=== PATIENT | female | born 1975 | race Caucasian/White ===

== ENCOUNTER → 2018-02-28 16:51 | Outpatient (CLI) | payer OTHER, SELFPAY ==
[2018-02-28 11:09] VITALS: BMI 28.5
[2018-03-06 09:57] LABS: HPV APTIMA, High Risk Negative (Negative)
--- OUTSIDE RECORDS SUMMARY | 2018-04-16 22:08 | XMS RPT_ITS ---
:1975 Author Organization OHIP Care Team Providers Name Role Phone Dalila Enriquez Attending Unavailable Dalila Enriquez Attending Unavailable Dalila Enriquez Referring Unavailable VIRI PIÑA Attending Unavailable SAMUEL BERNAL Referring Unavailable Samuel Bernal Attending Unavailable PROVIDER, UNKNOWN Referring Unavailable No, PCP Primary Care Unavailable VERÓNICA CRUZ (OT) Attending Unavailable SAMUEL BERNAL Referring Unavailable PROBLEMS PROBLEMS DATE TYPE CONDITION / CODE ATTENDING STATUS SOURCE 04/03/2018 Active Unknown / NA Active [place] UNK(Unknown) Clinic Other [facility] Repository 04/03/2018 Admitting Unknown / JAYANT, Active [place] General diagnosis UNK(Unknown) [facility] (OT[facility] Repository 03/24/2018 Active Other injury of VIRI PIÑA Active [place] unspecified body [facility] Other region, initial [facility] encounter / Repository T14.8XXA(ICD-10) 02/28/2018 Unknown Z12.4 - Encounter Mina Active [place] for screening for [facility] malignant neoplasm Hospital of cervix / Repository Z12.4(ICD-10) 02/28/2018 Unknown Z01.419 - Encounter Mina, Active [place] for gynecological [facility] (general) (routine) Repository without abnormal findings / Z01.419(ICD-10) 02/28/2018 Unknown Z13.220 - Encounter Mina, Active [place] for screening for [facility] lipoid disorders / Hospital Z13.220(ICD-10) Repository 02/28/2018 Unknown Z13.1 - Encounter Mina, Active [place] for screening for [facility] diabetes mellitus / Hospital Z13.1(ICD-10) Repository 02/28/2018 Unknown Z13.21 - Encounter Mina, Active [place] for screening for [facility] nutritional Hospital disorder / Repository Z13.21(ICD-10) PROCEDURES PROCEDURES No Procedure Records FoundRESULTS RESULTS PROGRESS Observed: 04/03/2018 Status: COMPLETED Source: [place] 1:37 PM CLINIC OTHER CAMPUS REPOSITORY HNO ID: [id number] Author: Verónica (Ot) MICHAEL Cruz Service: (none) Author Type: Occupational Therapist Type: Progress Notes Filed: 04/03/2018 1:59 PM Note Text: Episode Visit Count: 1 Therapist That Will Oversee The Plan Of Care: Stacie Cruz Start of Care Date: 04/03/18 Onset Date: 03/24/18 Patient Identified by Name and Date of : Yes [facility] OCCUPATIONAL THERAPY EVALUATION PLAN OF CARE: Assessment: Maru Bray presents with the chief complaint of open displaced fracture of the middle phalanx of the left ring and middle fingers.. She presents with impairments of pain, edema. She requires brake repairer hydraulic use of custom orthosis at this time, and range of motion to be initiated once K wire fixation removed. She may benefit from skilled occupational therapy services to improve functional use of her left hand.. Prognosis: Excellent Excellent due to: current objective clinical presentation;good overall health status;acuteness of injury Goals for Episode of Care created on 04/03/18 through 07/02/18 Patient will report a good understanding of diagnosis and OT recommendations for progression of program Patient will increase AROM of left Ring and little fingers to be 230 degrees of total active motion in order to be able to perform all self care / homemaking tasks without restrictions. Patient will independently demonstrate correct application of custom orthosis and verbalize understanding of proper wear/care by end of session. 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 Patient will report a good understanding of edema control techniques Goal Sage A=achieved PA=partially achieved NA=not achieved NT=not tested Planned Interventions, Frequency, and Duration: Current Frequency: 1x every other week Duration: 12 weeks Total Number of Visits Planned: 6 Planned Treatment Interventions: Custom orthosis fabrication;Therapeutic exercise;Therapeutic activities;Manual therapy;Self-correction management;Modalities;Patient/Family/Caregiver EducationFluidotherapy PLAN FOR NEXT VISIT: Patient to contact OT for orthosis modifications as needed. Initiate AROM after pin removal Patient demonstrates good understanding of plan of care and treatment. The above goals and plan of care were discussed and agreed upon by patient/family. SUBJECTIVE: Maru Bray is a 42 year old female seen today for Post op L hand. State she was wearing gloves when injury occurred while she was using a log splitter. To ER immediately , referred to Dr. Daniels. In addition to injury to L ring and little fingers that required surgery, states she also sustained a fracture to the middle finger as well, and that Dr. Bernal told her she could get a splint for that finger as well. Functional Limitations: lifting;heavy exertion;cleaning;driving Prior Level of Function: Independent without limitations Intake Information: Prescription present Previous Treatment: Surgery? 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 No drainage observed from pin sites Edema Location: L middle, ring and little fingers Edema Description: Mild Shoulder AROM: WNL Elbow/Wrist AROM: WNL Hand AROM: Limitations as noted Limitations as noted: Testing currently not indicated (Left) Thumb AROM: WNL Strength: Not Tested Sensation: Denies tingling or numbness Dexterity/Coordination: Not Tested Education: Education Learning Preferences: Demonstration;Explanation Barriers: None Learning/educational needs: Procedure / Surgery;Plan of Care;Wound;Home exercise program Education Provided: Yes, see treatment interventions for education provided Education Provided To: Patient (mother) Education Mode/Type: Demonstration;Literature/Printed Materials;Explanation/Discussion Response to Education/Teach Back: States/Identifies TREATMENT: Evaluation Self-Chcf Management: 1: Diagnosis / Plan of Care/ Precautions 2: Pin site care 2 x day with hydrogen peroxide 3: Wound care/ incision site care/ dressing changes 4: ROM uninvolved joints 5: Edema management Skilled Intervention: Reviewed and educated patient on additions/changes for home program as noted above with an (*). Custom orthosis: L 3913 HFO custom w/o joints (oppon/ hand gillespie/ hand trigger/ other) Custom orthosis to provide immobilization, protection and support of Left middle, ring and little fingers to promote healing. Patient was instructed in care of orthosis and wearing schedule at all times. Skilled Intervention: Clinical knowledge and skills required for custom orthotic fabrication and wearing schedule Patient/caregiver was educated in correct method for donning/doffing orthosis as well as wear and care of orthosis. Billing: Jasvir: Evaluation - Low Complexity ( 18110) Self Care / Home Management (31083): 1:1 time: 10 minutes (1 unit: 8-22 mins) Orthosis: Fabrication time for custom splint: 20 minutes Custom: L3913 HFO custom w/o joints (oppon/ hand gillespie/ hand trigger/ other) Total time: 50 minutes OSCAR Story/Riana,CHT CNTHERAPY Observed: 04/03/2018 Status: COMPLETED Source: [place] 10:45 AM CLINIC OTHER [place] REPOSITORY OT/PT/Speech Visit (AKOTB) MARU BRAY ([id number]) 1975 F Date Time Provider Department 04/03/18 10:45 AM VERÓNICA CRUZ (OT) JASON Date Time Provider Department Center 04/03/2018 10:45 AM [id number], ANAS*JASON AG [facility] Reason for Visit: OT EVAL [748] Primary Visit Diagnosis:Pain in finger of left hand [M79.645] Other Visit Diagnoses:Open displaced fracture of middle phalanx of left little finger, initial encounter [S62.626V] Open displaced fracture of middle phalanx of left ring finger, initial encounter [S62.625B] Allergies As of Date: 04/03/2018 Noted Allergy Reaction ZITHROMAX (AZITHROMYCIN) 02/24/2005 Date Reviewed: 03/24/2018 Reviewed by: Heather Garcia (Rn) ESTELA Weiss - Fully Assessed Prescriptions as of 04/03/2018 Sig: CEFADROXIL 500 MG CAPSULE Take 1 capsule by mouth twice* PRILOSEC ORAL Take by mouth. TRIAMCINOLONE ACETONIDE 0.025* Apply 1 application to affect* LEVONORGESTREL 20 MCG/24 HR (* Inserted in office Progress Notes: OSCAR Story/Riana,CHT, OT 04/03/2018 1:59 PM Signed Episode Visit Count: 1 Therapist That Will Oversee The Plan Of Care: Stacie Cruz Start of Care Date: 04/03/18 Onset Date: 03/24/18 Patient Identified by Name and Date of : Yes [facility] OCCUPATIONAL THERAPY EVALUATION PLAN OF CARE: Assessment: Maru Bray presents with the chief complaint of open displaced fracture of the middle phalanx of the left ring and middle fingers.. She presents with impairments of pain, edema. She requires brake repairer hydraulic use of custom orthosis at this time, and range of motion to be initiated once K wire fixation removed. She may benefit from skilled occupational therapy services to improve functional use of her left hand.. Prognosis: Excellent Excellent due to: current objective clinical presentation;good overall health status;acuteness of injury Goals for Episode of Care created on 04/03/18 through 07/02/18 Patient will report a good understanding of diagnosis and OT recommendations for progression of program Patient will increase AROM of left Ring and little fingers to be 230 degrees of total active motion in order to be able to perform all self care / homemaking tasks without restrictions. Patient will independently demonstrate correct application of custom orthosis and verbalize understanding of proper wear/care by end of session. 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 Patient will report a good understanding of edema control techniques Goal Sage A=achieved PA=partially achieved NA=not achieved NT=not tested Planned Interventions, Frequency, and Duration: Current Frequency: 1x every other week Duration: 12 weeks Total Number of Visits Planned: 6 Planned Treatment Interventions: Custom orthosis fabrication;Therapeutic exercise;Therapeutic activities;Manual therapy;Self-correction management;Modalities;Patient/Family/Caregiver EducationFluidotherapy PLAN FOR NEXT VISIT: Patient to contact OT for orthosis modifications as needed. Initiate AROM after pin removal Patient demonstrates good understanding of plan of care and treatment. The above goals and plan of care were discussed and agreed upon by patient/family. SUBJECTIVE: Maru Bray is a 42 year old female seen today for Post op L hand. State she was wearing gloves when injury occurred while she was using a log splitter. To ER immediately , referred to Dr. Daniels. In addition to injury to L ring and little fingers that required surgery, states she also sustained a fracture to the middle finger as well, and that Dr. Bernal told her she could get a splint for that finger as well. Functional Limitations: lifting;heavy exertion;cleaning;driving Prior Level of Function: Independent without limitations Intake Information: Prescription present Previous Treatment: Surgery? 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 No drainage observed from pin sites Edema Location: L middle, ring and little fingers Edema Description: Mild Shoulder AROM: WNL Elbow/Wrist AROM: WNL Hand AROM: Limitations as noted Limitations as noted: Testing currently not indicated (Left) Thumb AROM: WNL Strength: Not Tested Sensation: Denies tingling or numbness Dexterity/Coordination: Not Tested Education: Education Learning Preferences: Demonstration;Explanation Barriers: None Learning/educational needs: Procedure / Surgery;Plan of Care;Wound;Home exercise program Education Provided: Yes, see treatment interventions for education provided Education Provided To: Patient (mother) Education Mode/Type: Demonstration;Literature/Printed Materials;Explanation/Discussion Response to Education/Teach Back: States/Identifies TREATMENT: Evaluation Self-Chcf Management: 1: Diagnosis / Plan of Care/ Precautions 2: Pin site care 2 x day with hydrogen peroxide 3: Wound care/ incision site care/ dressing changes 4: ROM uninvolved joints 5: Edema management Skilled Intervention: Reviewed and educated patient on additions/changes for home program as noted above with an (*). Custom orthosis: L 3913 HFO custom w/o joints (oppon/ hand gillespie/ hand trigger/ other) Custom orthosis to provide immobilization, protection and support of Left middle, ring and little fingers to promote healing. Patient was instructed in care of orthosis and wearing schedule at all times. Skilled Intervention: Clinical knowledge and skills required for custom orthotic fabrication and wearing schedule Patient/caregiver was educated in correct method for donning/doffing orthosis as well as wear and care of orthosis. Billing: Jasvir: Evaluation - Low Complexity ( 18740) Self Care / Home Management (95099): 1:1 time: 10 minutes (1 unit: 8-22 mins) Orthosis: Fabrication time for custom splint: 20 minutes Custom: L3913 HFO custom w/o joints (oppon/ hand gillespie/ hand trigger/ other) Total time: 50 minutes OSCAR Story/NILES Mayers Letter Text [facility] Occupational Therapy Department Hand and Upper Extremity ORTHOSIS INSTRUCTIONS Maru Bray/ [facility]: [id number] Outpatient Occupational Therapy/ Date: April 03, 2018 Therapist: Stacie Cruz This orthosis was custom made for you. Please read the following instructions to learn about the proper wear and care for your orthosis. If you have any questions, please ask your therapist. Name of Splint: custom hand orthosis: hand based ulnar gutter L3913 HFO custom w/o joints (oppon/ hand gillespie/ hand trigger/ other) When to wear your orthosis: -brake repairer hydraulic Precautions: 1) Keep your orthosis away from open flames; it will melt and can burn 2) Keep your orthosis away from hot water, the heater, or prolonged sunlight. Excessive heat will cause your orthosis to change shape 3) If your orthosis causes any of the following problems, remove it and call your therapist for an immediate adjustment: a.) sore areas, red jara that do not go away within one hour after removing the orthosis b.) blisters c.) swelling (try loosening the straps) d.) excessive stiffness, pain, and numbness How To Put On Your Orthosis: When putting on your orthosis, be sure your hand is correctly supported and the straps are secure, but not too tight. The orthosis should fit snugly, but not too tight as to cut off circulation. If your orthosis is to be worn at night to sleep, wear it earlier in the day for a few hours to determine comfort and potential problem areas. If the orthosis seems comfortable and no problems are noted, then wear the orthosis as instructed. When the Orthosis is Removed: It is common to experience a little joint stiffness and discomfort after orthosis removal. Cleaning Your Splint: 1. Clean your orthosis with soap and lukewarm water and scrub with a small brush. 2. You may use a bathroom cleanser or nail khmer remover on hard to remove stains. 3. You may rub the inside with rubbing alcohol to decrease the odor. 4. Velcro Straps and stockinet liner may be hand washed with lukewarm, soapy water and allowed to air dry. 5. White cotton socks may be used to replace stockinet liners. Cut out the toes and cut out a place for your thumb to fit through. Additional Comments / Instructions: Call your therapist at the phone number listed above if any questions develop. Letter Text Department of Occupational Therapy Hand and Upper Extremity Center [facility] [address] [place] [address] ext [phone] Maru Sebastian Bray 04/03/2018 Therapist: Stacie Cruz CARE OF EXTERNAL FIXATORS/PINS: - It is okay to shower, use running soapy water on the pin sites. - DO NOT SOAK your surgical arm - Clean pin sites two times per day using a cottontip applicator a hydrogen Peroxide . Use only one cottontip applicator per pin site. - Exercise fingers, elbow and shoulder several times a day as instructed, however avoid strengthening [i.e. squeezing balls, etc.] - Do not push, pull or carry anything heavier than a small phone book. - If you notice increased redness, tenderness or drainage around the pin sites, please call the office. THERAPIST: Stacie Cruz HCG,URINE QUAL Collected: 03/27/2018 Status: F Source: [facility] 8:20 AM SYSTEM REPOSITORY TYPE CODE TESTS RESULT OUT OF REFERENCE UNITS RANGE LAB HCGUR Negative NA Negative HCG,Urine Qual Result Comment: is the most common reason for HCG in urine, although choriocarcinoma, hydatidiform mole, and certain nontropho- blastic malignancies also result in detectable urinary HCG levels. Sensitivity = 20mIU/mL. Performed By: #### HCGUR #### [facility] [address] [place] [address] ED NOTE Observed: 03/24/2018 Status: COMPLETED Source: [place] 6:43 PM CLINIC MAIN CAMPUS REPOSITORY HNO ID: [id number] Author: Loida (Estela) ESTELA Ridley Service: Emergency Medicine Author Type: Registered Nurse Type: ED Notes Filed: 03/24/2018 6:43 PM Note Text: Discharge instructions given. All questions answered, no further questions or concerns. Pt ambulated to lobby with a steady and independent gait with spouse. HAND 3V PA/LAT/OBL Observed: 03/24/2018 Status: F Source: [facility] 4:20 PM HEALTH SYSTEM REPOSITORY Performed at [facility] APPROVED BY: Mansoor Llamas MD EXAM TITLE: HAND 3V PA/LAT/OBL left DATE: 03/24/2018 16:11 INDICATION: Left hand was caught in a wood splitter COMPARISON: None. FINDINGS: There are comminuted appearing fractures involving the distal phalanges of the third and fourth digits. Also, there are comminuted fractures involving the middle phalanges of the fourth and f ifth digits. No dislocation is seen. Soft tissue swelling is noted near the fractures. IMPRESSION: Multiple fractures as discussed. ED PROV NOTE Observed: 03/24/2018 Status: COMPLETED Source: [place] 3:56 PM [facility] [place] REPOSITORY HNO ID: [id number] Author: Viri Piña Service: Emergency Medicine Author Type: Physician Type: ED Provider Notes Filed: 03/24/2018 7:14 PM Note Text: ED Provider Note Patient Name: Maru Bray SERVICE DATE: 03/24/18 History Patient presents with: Finger Injury Maru Bray is a 42 year old female with history of no chronic medical problems who presents with left hand and Finger Injury. Patient took nothing for this prior to arrival. Patient was using a wood splitter and got her hand caught in the splitter. She is right handed. - Symptoms began 20 minutes prior to arrival. - Severity: severe - Timing: constant - Quality: sharp - Finger Injury is exacerbated by movement palpation. - Finger Injury is not exacerbated by rest. - Symptoms are associated with pain. - Symptoms are not associated with fever, nausea and vomiting. - Improved by rest and cold compresses. - Not improved by movement. PAST MEDICAL HISTORY Diagnosis Date - Abdominal pain, right upper quadrant - Abnormal glandular Papanicolaou smear of cervix Abn. Pap smear (cervix) - Allergic rhinitis, cause unspecified - Duodenitis without mention of hemorrhage - Endometriosis, site unspecified Endometriosis - PMH - PAST MEDICAL HISTORY OF esophagitis/chronic gastritis - Ulcer, stomach peptic 2011 PAST SURGICAL HISTORY Procedure Laterality Date - COLPOSCOPY (VAGINOSCOPY) Colposcopy - EGD W/O [facility] SPECIMEN W/BX 01/19/11 - LAPAROSCOPIC CHOLEYCYSTECTOMY 08-19-12 - REMOVAL ADENOIDS,PRIMARY,<12 Y/O Adenoidectomy - REMOVAL OF OVARY(S) 08/19/12 Oophorectomy/ left endometrioma - REMOVAL OF TONSILS,<12 Y/O Tonsillectomy FAMILY HISTORY Problem Relation Age of Onset - Cancer Maternal Grandmother SKIN - Diabetes Paternal Grandmother - Heart Paternal Grandfather [place] Social History Social History Main Topics - Smoking status: Former Smoker Types: Cigarettes Quit date: 10/18/2017 - Smokeless tobacco: Never Used - Alcohol use Yes Comment: Socially - Drug use: No - Sexual activity: Yes Partners: Male control/ protection: IUD Comment: has had a vasectomy ALLERGIES Allergen Reactions - Zithromax [Azithrom* Review of Systems Constitutional: Negative for activity change and appetite change. HENT: Negative for congestion and ear discharge. Eyes: Negative for pain and discharge. Respiratory: Negative for cough and chest tightness. Cardiovascular: Negative for chest pain and palpitations. Gastrointestinal: Negative for abdominal pain and constipation. Endocrine: Negative for polydipsia and polyuria. Genitourinary: Negative for dyspareunia and dysuria. Musculoskeletal: Positive for arthralgias and joint swelling. Neurological: Negative for dizziness and headaches. Psychiatric/Behavioral: Negative for agitation and behavioral problems. Physical Exam BP 132/64 Pulse 74 Temp (Src) 97.9 (Temporal Artery) Resp 16 Ht 5' 7 (1.70m) Wt 178 lb (80.7kg) SpO2 100% BMI 27.87 kg/(m2). Physical Exam Constitutional: She is oriented to person, place, and time. She appears well-developed and well-nourished. HENT: Head: Normocephalic and atraumatic. Right Ear: External ear normal. Left Ear: External ear normal. Nose: Nose normal. Mouth/Throat: Oropharynx is clear and moist. Eyes: Pupils are equal, round, and reactive to light. Conjunctivae and EOM are normal. Neck: Normal range of motion. Neck supple. Cardiovascular: Normal rate, regular rhythm, normal heart sounds and intact distal pulses. Pulmonary/Chest: Effort normal and breath sounds normal. Abdominal: Soft. Bowel sounds are normal. Musculoskeletal: Normal range of motion. Neurological: She is alert and oriented to person, place, and time. Skin: Capillary refill takes less than 2 seconds. There is erythema. Psychiatric: She has a normal mood and affect. Her behavior is normal. Diagnostic Testing ED Labs Ordered and Reviewed - No data to display SPLINT APPLICATION Date/Time: 03/24/2018 6:17 PM Performed by: VIRI PIÑA Authorized by: VIRI PIÑA Consent: Consent obtained: Verbal Consent given by: Patient Risks discussed: Discoloration, numbness, pain and swelling Alternatives discussed: No treatment, delayed treatment, alternative treatment, observation and referral Pre-procedure details: Sensation: Normal Procedure details: Laterality: Left Location: Finger Finger: L small finger, L ring finger, L long finger, L index finger and L thumb Cast type: Short arm Splint type: Volar short arm Supplies: Cotton padding and elastic bandage Post-procedure details: Pain: Improved Sensation: Normal Patient tolerance of procedure: Tolerated well, no immediate complications ED Course / Clinical Impression Clinical Impressions as of Mar 24 1813 Open fracture MDM / Disposition / Plan Patient was chopping wood and got her hand smashed. Xrays show fractures on 4th and 5th fingers. Open fractures. Spoke with Dr. Bernal plastic/hand surgeon commissions specialist per [facility]. I sent pictures of xrays and hand. I was advised to give antibiotics, splint and pain medication. He will see her on Monday at his office and surgery on Monday. The patient was DISCHARGED: Counseled patient regarding lab results AND radiology results AND suspected diagnosis AND need for follow- up. Discharged home with verbal and written instructions. They were instructed to return as needed for persistent or worsening symptoms or any new concerns. Condition at time of disposition: stable SIGNATURE: DO Viri Hsu 03/24/18 1914 ED NOTE Observed: 03/24/2018 Status: COMPLETED Source: [place] 3:55 PM [facility] O ID: [id number] Author: Heather Garcia (Rn) ESTELA Weiss Service: (none) Author Type: Registered Nurse Type: ED Notes Filed: 03/24/2018 3:55 PM Note Text: Smashed two fingers with log splitter. [employer] OFFICE VISIT Observed: 02/28/2018 Status: F Source: [place] REPORT 1:10 PM [facility] REPOSITORY [facility] [address] [place] [address] OFFICE VISIT Date of Service: 02/28/18 MR#: [id number] Acct: [id number] Name: MARU BRAY Rep #: [id number] : 1975 Provider: Dalila Enriquez MD Age/Sex: 42/F Location: [facility] Status: Signed Intake Vital Signs02/28/18 Height 5 ft 7 in 02/28/18 Weight: 182 lb 8 oz 02/28/18 Body Mass Index (BMI) 28.5 02/28/18 Blood Pressure 116/70 Intake Visit Reasons: ANNUAL Deputy General Counsel Required: No Is patient in pain?: No Allergies azithromycin Adverse Reaction (Unknown, Verified 02/28/18 11:16) rash Medications levonorgestrel 20 mcg/24 hr (5 years) intrauterine device 1 insert INTRAUTERINE ONCE 02/28/18 [History Confirmed 02/28/18] Is last menstrual period known: No Post menopausal: No Patient : No : No PFSH Surgical History History of cholecystectomy (Acute) History of tonsillectomy and adenoidectomy (Acute) Hx of removal of ovary (Acute) Social History number of children: 2 current occupational status: employed current occupation: [employer] Smoking Status: Current every day smoker alcohol intake: current alcohol intake frequency: holidays/special occasions only substance use type: does not use seatbelt use: always do you feel safe at home: Yes additional social history: [facility] [place] Pregancy History 2 Elective abortions Hx Para 2 Spontaneous abortions Past Pregnancies Del. DatName GA/WeeksOutcome [facility] LocaProviderFOB e ht en tn Unknown [id number] Unknown [place] 2 005 HPI ANNUAL: Details: MARU BRAY is a 42 year old who presents for annual exam. quit smoking and doing well, and then wanting to eat healthy. Last PAP: couple years ago History of abnormal PAP: nl Last mammogram: ordered History of abnormal mammogram: Colon cancer screening: Other preventative health care screenings: due Female Reproductive History Cycle Length: >35 Questions: Metorrhagia: No, Sexually active: Yes, Dyspareunia: No, PCB: No Menopausal Symptoms: No hot flashes, Yes night sweats, No weight change, No mood changes, No difficulty concentrating, No sleep problems, No change in libido ROS Const Constitutional: Reports as per HPI and night sweats; denies poor appetite, fatigue, increased appetite, weight gain or weight loss Cardio Card: Denies chest pain Resp Resp: Denies dyspnea or cough GI GI: Reports as per HPI; denies bloating, abdominal pain, constipation, vomiting or nausea : Reports as per HPI and other; denies blood in urine, vaginal odor, vaginal itching, vaginal dryness, vaginal discharge, urinary urgency, urinary incontinence, urinary frequency, pelvic pain, painful urination, difficulty urinating, prolapse symptoms, nipple discharge or hot flashes Skin Skin/Breast: Denies breast pain, breast skin changes, nipple discharge, breast lump or changing lesions Psych Psych: Denies difficulty concentrating or change in sex drive Exam Const General: cooperative, healthy appearing, comfortable, no acute distress, well developed, well groomed [facility] Head: normal to inspection, normocephalic Ears: hearing grossly normal bilaterally, external ears normal Nose: external nose normal Face and sinus: normal facial exam Neck Neck: normal visual inspection, full ROM, no lymphadenopathy Thyroid: thyroid normal Chest Chest palpation AND inspection: normal inspection of the chest Breast inspection: normal inspection of the breasts, normal inspection of the axillae Breast palpation: normal palpation of the breasts, normal palpation of the axillae, no axillary lymphadenopathy Resp Effort AND Inspection: normal respiratory effort GI Inspection: normal to inspection, non-distended Palpation: no guarding, soft, no hepatosplenomegaly General: bladder normal to palpation External Female Exam: normal external appearance, normal appearance of the urethra, no lesions Urethra: normal appearance of the urethra, normal palpation Speculum Exam - Vagina: normal appearance of the vagina, normal vaginal discharge Speculum Exam - Cervix: normal appearance of the cervix, no cervical discharge, no lesions, nontender Bimanual Exam- Vagina AND Uterus: No cervical tenderness, normal bimanual exam, uterine size normal, bladder normal to palpation, uterine mobility normal, uterine consistency normal, uterus non-tender, no cervical motion tenderness Bimanual Exam- Adnexa, other: normal adnexae, no adnexal masses, adnexae non-tender Skin General: no rashes or lesions noted Neuro General: alert, moves all extremities, no focal motor deficits Extrem General: no pedal edema, normal to inspection Psych Appearance: grossly normal Mental Status: mental status grossly normal Affect: normal affect Speech and Movement: speech and movement normal Attitude: cooperative Assessment AND Plan Problems 1. Encounter for gynecological examination without abnormal finding Z01.419 Plan Cervical cancer screening: pap hpv Breast cancer screening: mamm other health maintenance examination reviewed and orders placed if needed. Encouraged maintenance of a healthy weight and active lifestyle and handout given. Annual exam handout including recommendations for good health guidelines, Calcium/vitamin D recommendations, and basic screening information given. Problem list up to date, see problem list details for any additional plan information. Follow up in one year for annual health maintenance exam or sooner if needed. Orders Orders: Coding Level of Care Code Off vis,est,prev 40-64yrs Diagnoses Encounter for gynecological examination without abnormal finding Z01.419 Gynecological examination findings: abnormal findings ABSENT 02/28/18 1310 <Electronically signed by Dalila Enriquez MD> Date Dalila Enriquez MD Cosigner Signature: Date (if applicable) CC: PAP IG HPV APTIMA Collected: 02/28/2018 Status: F Source: [place] 16/18,45 11:00 AM [facility] REPOSITORY Order Comment: CYTOLOGY INFORMATION: - CLINICAL INFORMATION: ANNUAL - DATE LMP/MENOPAUSE: N/A - COLLECTION VIAL: Thin Prep Vial - PREMIUM NOTE INTEREST CALCULATOR CLERK SOURCE: CERVICAL - COLLECTION TECHNIQUE: CX BROOM ONLY Specimen Comment: [id number] Specimen Comment: Source.............Cervix Specimen Comment: No. of containers..01 ThinPrep Vial TYPE CODE TESTS RESULT OUT OF RANGE REFERENCE UNITS LAB L7400.0800 . Normal DIAGN Comment Result Comment: NEGATIVE FOR INTRAEPITHELIAL LESION AND MALIGNANCY. LAB L7400.0900 . Normal ADEQ Comment Result Comment: Satisfactory for evaluation. Endocervical and/or squamous metaplastic cells (endocervical component) are present. LAB L7400.1400 . Normal PERFORM Comment Result Comment: Nayla Coulter, Life Coach (ASCP) LAB L7400.2575 . Normal TEST METHOD Comment Result Comment: This liquid based ThinPrep(R) pap test was screened with the use of an image guided system. LAB L7400.2600 . Normal . COMM LAB L7400.2700 . Normal PAPSMR Comment Result Comment: The Pap smear is a screening test designed to aid in the detection of premalignant and malignant conditions of the uterine cervix. It is not a diagnostic procedure and should not be used as the sole means of detecting cervical cancer. Both false-positive and false-negative reports do occur. LAB L7400.2760 Negative Normal HPV APTIMA, Negative HR Result Comment: This test detects fourteen high-risk HPV types (16/18/31/33/35/39/45/ 51/52/56/58/59/66/68) without differentiation. Performed at: - [facility] [id number] Data Analytics Developer: Talisha Navarro MD, Phone: [phone] Performed at: = - [facility] [id number] Data Analytics Developer: Talisha Navarro MD, Phone: [phone] Performed By: #### L7400.0280 #### [facility] (refer to report for specific site) refer to report for address and phone number PROGRESS Observed: 12/19/2017 Status: COMPLETED Source: [place] 7:27 AM [facility] REPOSITORY O ID: [id number] Author: Sigrid (Stefania) Toño Service: (none) Author Type: Nurse Practitioner Type: Progress Notes Filed: 12/19/2017 8:06 AM Note Text: Subjective The history is provided by the patient. Maru Bray is a 42 year old female who presents with poison noris on her face, neck and forearms and fingers for the past 2 days after pulling some weeds at her grandmas house. She has used cortisone cream without relief. Review of Systems Constitutional: Negative. Negative for fever. Musculoskeletal: Negative. Skin: Positive for itching and rash. BP 122/80 Pulse (!) 55 Temp 36.4 ?C (97.5 ?F) (Tympanic) Resp 14 Wt 78.3 kg (172 lb 9.6 oz) BMI 27.44 kg/m? PAST MEDICAL HISTORY Diagnosis Date - Abdominal pain, right upper quadrant - Abnormal glandular Papanicolaou smear of cervix Abn. Pap smear (cervix) - Allergic rhinitis, cause unspecified - Duodenitis without mention of hemorrhage - Endometriosis, site unspecified Endometriosis - PMH - PAST MEDICAL HISTORY OF esophagitis/chronic gastritis - Ulcer, stomach peptic 2011 PAST SURGICAL HISTORY Procedure Laterality Date - COLPOSCOPY (VAGINOSCOPY) Colposcopy - EGD W/O BRSH SPECIMEN W/BX 01/19/11 - LAPAROSCOPIC CHOLEYCYSTECTOMY 08-19-12 - REMOVAL ADENOIDS,PRIMARY,<12 Y/O Adenoidectomy - REMOVAL OF OVARY(S) 08/19/12 Oophorectomy/ left endometrioma - REMOVAL OF TONSILS,<12 Y/O Tonsillectomy ALLERGIES Zithromax [Azithromycin] MEDICATIONS omeprazole (PRILOSEC ORAL) Take by mouth. levonorgestrel (MIRENA) 20 mcg/24 hr (5 years) IUD Inserted in office FAMILY HISTORY Problem Relation Age of Onset - Cancer Maternal Grandmother SKIN - Diabetes Paternal Grandmother - Heart Paternal Grandfather [place] Social History Substance Use Topics - Smoking status: Current Every Day Smoker Packs/day: 0.50 Years: 10.00 Types: Cigarettes - Smokeless tobacco: Never Used - Alcohol use Yes Comment: Socially Objective Physical Exam Constitutional: She is well-developed, well-nourished, and in no distress. HENT: Head: Normocephalic. Eyes: Conjunctivae are normal. Neurological: She is alert. Skin: Skin is warm and dry. Rash noted. There is erythema. Nursing note and vitals reviewed. ASSESSMENT/PLAN: 1. Dermatitis due to plants, including poison noris, sumac, and oak - ICD9: 692.6, ICD10: L25.5 - Oral Steriod tx -Prednisone taper - Topical steriod tx with Rx for steriod cream/ointment- see orders - Anti itch therapy of Oral Benydryl recommended prn - discussed skin care of rash - follow up if symptoms persist or worsen. - PREDNISONE 10 MG TABLET - TRIAMCINOLONE ACETONIDE 0.025 % TOPICAL CREAM - Follow-up with your PCP in 3-5 days if symptoms have not improved or sooner if symptoms worsen - Discussed red flags and need for immediate medical evaluation if any occur. - Discussed supportive care treatment with fluids, rest and analgesia. - Discussed expected course of illness Sigrid Lundberg APRN.CNP CNOV Observed: 12/19/2017 Status: COMPLETED Source: [place] 7:15 AM [facility] REPOSITORY Office Visit ([facility]) MARU BRAY ([id number]) 1975 F Date Time Provider Department 12/19/17 7:15 AM SIGRID LUNDBERG (STEFANIA) [facility] During your visit today, we recorded the following information about you: Temperature Pulse Respiration Blood pressure 97.5 degrees 55/minute 14/minute 122/80 Weight 78.3 kg Sigrid Lundberg APRN.CNP 12/19/2017 8:06 AM Signed Subjective The history is provided by the patient. Maru Bray is a 42 year old female who presents with poison noris on her face, neck and forearms and fingers for the past 2 days after pulling some weeds at her grandmas house. She has used cortisone cream without relief. Review of Systems Constitutional: Negative. Negative for fever. Musculoskeletal: Negative. Skin: Positive for itching and rash. BP 122/80 Pulse (!) 55 Temp 36.4 ?C (97.5 ?F) (Tympanic) Resp 14 Wt 78.3 kg (172 lb 9.6 oz) BMI 27.44 kg/m? PAST MEDICAL HISTORY Diagnosis Date - Abdominal pain, right upper quadrant - Abnormal glandular Papanicolaou smear of cervix Abn. Pap smear (cervix) - Allergic rhinitis, cause unspecified - Duodenitis without mention of hemorrhage - Endometriosis, site unspecified Endometriosis - PMH - PAST MEDICAL HISTORY OF esophagitis/chronic gastritis - Ulcer, stomach peptic 2011 PAST SURGICAL HISTORY Procedure Laterality Date - COLPOSCOPY (VAGINOSCOPY) Colposcopy - EGD W/O BRSH SPECIMEN W/BX 01/19/11 - LAPAROSCOPIC CHOLEYCYSTECTOMY 08-19-12 - REMOVAL ADENOIDS,PRIMARY,<12 Y/O Adenoidectomy - REMOVAL OF OVARY(S) 08/19/12 Oophorectomy/ left endometrioma - REMOVAL OF TONSILS,<12 Y/O Tonsillectomy ALLERGIES Zithromax [Azithromycin] MEDICATIONS omeprazole (PRILOSEC ORAL) Take by mouth. levonorgestrel (MIRENA) 20 mcg/24 hr (5 years) IUD Inserted in office FAMILY HISTORY Problem Relation Age of Onset - Cancer Maternal Grandmother SKIN - Diabetes Paternal Grandmother - Heart Paternal Grandfather [place] Social History Substance Use Topics - Smoking status: Current Every Day Smoker Packs/day: 0.50 Years: 10.00 Types: Cigarettes - Smokeless tobacco: Never Used - Alcohol use Yes Comment: Socially Objective Physical Exam Constitutional: She is well-developed, well-nourished, and in no distress. HENT: Head: Normocephalic. Eyes: Conjunctivae are normal. Neurological: She is alert. Skin: Skin is warm and dry. Rash noted. There is erythema. Nursing note and vitals reviewed. ASSESSMENT/PLAN: 1. Dermatitis due to plants, including poison noris, sumac, and oak - ICD9: 692.6, ICD10: L25.5 - Oral Steriod tx -Prednisone taper - Topical steriod tx with Rx for steriod cream/ointment- see orders - Anti itch therapy of Oral Benydryl recommended prn - discussed skin care of rash - follow up if symptoms persist or worsen. - PREDNISONE 10 MG TABLET - TRIAMCINOLONE ACETONIDE 0.025 % TOPICAL CREAM - Follow-up with your PCP in 3-5 days if symptoms have not improved or sooner if symptoms worsen - Discussed red flags and need for immediate medical evaluation if any occur. - Discussed supportive care treatment with fluids, rest and analgesia. - Discussed expected course of illness JANEY Muse APRN.CNP 12/19/2017 7:31 AM Signed [facility] PATIENT INFO POISON NORIS INTRODUCTION When the skin comes in direct contact with an irritating or allergy-causing substance, contact dermatitis can develop. Exposure to poison noris, poison oak, and poison sumac cause more cases of allergic contact dermatitis than all other plant families combined. People of all ethnicities and skin types are at risk for developing poison noris dermatitis. The severity of the reaction tends to decrease with age, especially in people who have had mild reactions in the past. People in occupations such as firefighting, forestry, and farming are at a higher risk of poison onris dermatitis because of repeated exposure to toxic plants. POISON NORIS CAUSES Poison noris, poison oak, and poison sumac plants all contain a compound called urushiol, which is a light, colorless oil that is found on the fruit, leaves, stem, root, and sap of the plant. When urushiol is exposed to air, it turns brown and the plant leaves develop small black spots. There are several ways that you can be exposed to urushiol: ? By touching the sap or rubbing against the leaves of the toxic plant ? By touching something that has urushiol on it, such as animal fur or garden tools ? By breathing in smoke when toxic plants are burned ? Ginkgo fruit and the skin of mangoes also contain urushiol and can produce symptoms similar to poison noris dermatitis. IDENTIFYING POISON NORIS Leaves of three, let them be is a phrase often used to identify plants that cause poison noris dermatitis. Generally, poison noris and poison oak have three leaves with flowering branches on a single stem. Poison sumac has five, seven, or more leaves that angle upward toward the top of the stem. Some types of poison noris produce a green or off-white fruit in aroldo, and in some cases, black dots form on the plants' leaves. It is not always possible to identify the plant by the leaves alone since the appearance can vary depending upon the season, growth cycle, region, and climate. Poison noris, oak, and sumac plants grow in many areas across the [facility] and throughout the world. [place] of the [facility], poison noris commonly grows as a climbing vine. In the [place] area and west, poison noris tends to grow low to the ground as a shrub. Poison oak most often grows west of the [facility], and poison sumac inhabits boggy areas in the southeastern part of the [place]. The plants are not usually found in areas at high elevations or in desert climates. POISON NORIS SIGNS AND SYMPTOMS After contact with urushiol, approximately 50 percent of people develop signs and symptoms of poison noris dermatitis. The symptoms and severity differ from person to person. The most common signs and symptoms of poison noris dermatitis are: ? Intense itching ? Skin swelling ? Skin redness These symptoms usually develop within four hours to four days after exposure to the urushiol. After the initial symptoms, you will develop fluid-filled blisters in a line or streak-like pattern. The symptoms are worst within 1 to 14 days after touching the plant, but can develop up to 21 days later if you have never been exposed to urushiol before. The blisters can occur at different times in different people; blisters can develop on the arms several days after blisters on the hands developed. This does not mean that the reaction is spreading from one area of the body to the other. The fluid that leaks from blisters does not cause symptoms. Poison noris dermatitis is not contagious and cannot be passed from person to person. However, urushiol can be carried under fingernails and on clothes; if another person comes in contact with the urushiol, they can develop poison noris dermatitis. POISON NORIS DIAGNOSIS Poison noris is usually diagnosed based upon how your skin looks. Further testing is not usually necessary. POISON NORIS TREATMENT Poison noris dermatitis usually resolves within one to three weeks without treatment. Treatments that may help relieve the itching, soreness, and discomfort caused by poison noris dermatitis include: Skin treatments ? For some people, adding oatmeal to a bath, applying cool wet compresses, and applying calamine lotion may help to relieve itching. Once the blisters begin weeping fluid, astringents containing aluminum acetate (Gavin's solution) and Domeboro may help to relieve the rash. Antihistamines ? Antihistamines may help to relieve itching caused by poison noris dermatitis. Some antihistamines make you sleepy while others do not. ? Antihistamines that make you sleepy (eg, diphenhydramine [Benadryl?]) may be helpful if you have trouble sleeping due to itching. ? Other formulas (eg, loratadine [Claritin?], cetirizine [Zyrtec?]) may be preferable for daytime. Steroid creams ? Steroid creams may be helpful if they are used during the first few days after symptoms develop. Low potency steroid creams, such as 1 percent hydrocortisone (available in the [place] without prescription) are not usually helpful. A stronger prescription formula may be helpful. Steroids ? If you develop severe symptoms or the rash covers a large area (especially on the face or genitals), you may need steroid pills or injections (eg, prednisone) to help relieve itching and swelling. Pills are usually given for 14 to 21 days, with the dosage slowly decreased over time. Antibiotics ? Skin infections are a potential complication of poison noris, especially if you scratch your skin. If you develop a skin infection because of poison noris dermatitis, you may need antibiotics to treat the infection. Other treatments ? An herbal therapy called jewelweed extract has been used to treat poison noris dermatitis, although it has not been proven effective. You should not use antihistamine creams or lotions, anesthetic creams containing benzocaine, or antibiotic creams containing neomycin or bacitracin to the skin. These creams or ointments could make the rash worse. POISON NORIS PREVENTION The best way to prevent poison noris dermatitis is to identify and avoid the plants that cause it. These plants can irritate the skin year round, even during the winter months, and can still cause a reaction years after the plant dies. ? Wear protective clothing, including long sleeves and pants when working in areas where toxic plants may be found. Keep in mind that the resin and oils from the toxic plants can be carried on clothing, pets, and under fingernails. ? Wear heavy-duty vinyl gloves when doing yard work or gardening. The oils from toxic plants can seep through latex or rubber gloves. ? After coming in contact with poison noris, remove any contaminated clothing and gently wash (do not scrub or rub) you skin and under the fingernails with mild soap and water as soon as possible. Washing within two hours after exposure can reduce the likelihood and severity of symptoms; washing the skin after you have symptoms will not help. ? Creams and ointments that create a barrier between the skin and the urushiol oil may be somewhat effective for people who are frequently exposed to poison noris. Bentoquatam (Noris Block?) is one type of barrier cream that may prevent poison noris dermatitis. It must be reapplied every four hours and it leaves a gricelda residue on the skin. ? Avoid burning poisonous vegetation, which can disperse the plant particles in the smoke, irritate the skin, and cause poison noris dermatitis. Referring Provider: SELF [[id number]] Allergies As of Date: 12/19/2017 Noted Allergy Reaction ZITHROMAX (AZITHROMYCIN) 02/24/2005 Date Reviewed: 12/19/2017 Reviewed by: Sigrid ([facility]) Toño - Fully Assessed Reason for Visit: poison noris on face [Other] Cmt: x 2 days Primary Visit Diagnosis:Dermatitis due to plants, including poison noris, sumac, and oak [L25.5] Order(s):predniSONE (DELTASONE) 10 mg tabletTake 4 tabs daily for 3 days, then 2 tabs daily for 3 days, then 1 tab daily for 3 days with food.Disp: 21 tabletRfl: 0 triamcinolone (KENALOG) 0.025 % creamApply 1 application to affected area twice daily.Disp: 30 gRfl: 0 Prescriptions as of 12/19/2017 Sig: PRILOSEC ORAL Take by mouth. LEVONORGESTREL 20 MCG/24 HR (* Inserted in office PREDNISONE 10 MG TABLET Take 4 tabs daily for 3 days,* TRIAMCINOLONE ACETONIDE 0.025* Apply 1 application to affect* Problem List As Of Date 12/19/2017 Noted Resolved Cholecystitis [K81.9] INVALID FOR* Duodenitis without mention of hemorrhage [K29.8*INVALID FOR* Abdominal pain, right upper quadrant [R10.11] INVALID FOR* Abscess, groin [L02.214] INVALID FOR* Abnormal uterine bleeding [N93.9] INVALID FOR* Heavy menstrual bleeding [N92.0] INVALID FOR* Dysmenorrhea [N94.6] INVALID FOR* Endometriosis [N80.9] INVALID FOR* Other instructions from your clinician: [facility] PATIENT INFO POISON NORIS INTRODUCTION When the skin comes in direct contact with an irritating or allergy-causing substance, contact dermatitis can develop. Exposure to poison noris, poison oak, and poison sumac cause more cases of allergic contact dermatitis than all other plant families combined. People of all ethnicities and skin types are at risk for developing poison noris dermatitis. The severity of the reaction tends to decrease with age, especially in people who have had mild reactions in the past. People in occupations such as firefighting, forestry, and farming are at a higher risk of poison noris dermatitis because of repeated exposure to toxic plants. POISON NORIS CAUSES Poison noris, poison oak, and poison sumac plants all contain a compound called urushiol, which is a light, colorless oil that is found on the fruit, leaves, stem, root, and sap of the plant. When urushiol is exposed to air, it turns brown and the plant leaves develop small black spots. There are several ways that you can be exposed to urushiol: ? By touching the sap or rubbing against the leaves of the toxic plant ? By touching something that has urushiol on it, such as animal fur or garden tools ? By breathing in smoke when toxic plants are burned ? Ginkgo fruit and the skin of mangoes also contain urushiol and can produce symptoms similar to poison noris dermatitis. IDENTIFYING POISON NORIS Leaves of three, let them be is a phrase often used to identify plants that cause poison noris dermatitis. Generally, poison noris and poison oak have three leaves with flowering branches on a single stem. Poison sumac has five, seven, or more leaves that angle upward toward the top of the stem. Some types of poison noris produce a green or off-white fruit in aroldo, and in some cases, black dots form on the plants' leaves. It is not always possible to identify the plant by the leaves alone since the appearance can vary depending upon the season, growth cycle, region, and climate. Poison noris, oak, and sumac plants grow in many areas across the [facility] and throughout the world. East of the [facility], poison noris commonly grows as a climbing vine. In the [place] area and west, poison noris tends to grow low to the ground as a shrub. Poison oak most often grows west of the [facility], and poison sumac inhabits boggy areas in the southeastern part of the [facility]. The plants are not usually found in areas at high elevations or in desert climates. POISON NORIS SIGNS AND SYMPTOMS After contact with urushiol, approximately 50 percent of people develop signs and symptoms of poison noris dermatitis. The symptoms and severity differ from person to person. The most common signs and symptoms of poison noris dermatitis are: ? Intense itching ? Skin swelling ? Skin redness These symptoms usually develop within four hours to four days after exposure to the urushiol. After the initial symptoms, you will develop fluid-filled blisters in a line or streak-like pattern. The symptoms are worst within 1 to 14 days after touching the plant, but can develop up to 21 days later if you have never been exposed to urushiol before. The blisters can occur at different times in different people; blisters can develop on the arms several days after blisters on the hands developed. This does not mean that the reaction is spreading from one area of the body to the other. The fluid that leaks from blisters does not cause symptoms. Poison noris dermatitis is not contagious and cannot be passed from person to person. However, urushiol can be carried under fingernails and on clothes; if another person comes in contact with the urushiol, they can develop poison noris dermatitis. POISON NORIS DIAGNOSIS Poison noris is usually diagnosed based upon how your skin looks. Further testing is not usually necessary. POISON NORIS TREATMENT Poison noris dermatitis usually resolves within one to three weeks without treatment. Treatments that may help relieve the itching, soreness, and discomfort caused by poison noris dermatitis include: Skin treatments ? For some people, adding oatmeal to a bath, applying cool wet compresses, and applying calamine lotion may help to relieve itching. Once the blisters begin weeping fluid, astringents containing aluminum acetate (Gavin's solution) and [place] may help to relieve the rash. Antihistamines ? Antihistamines may help to relieve itching caused by poison noris dermatitis. Some antihistamines make you sleepy while others do not. ? Antihistamines that make you sleepy (eg, diphenhydramine [Benadryl?]) may be helpful if you have trouble sleeping due to itching. ? Other formulas (eg, loratadine [Claritin?], cetirizine [Zyrtec?]) may be preferable for daytime. Steroid creams ? Steroid creams may be helpful if they are used during the first few days after symptoms develop. Low potency steroid creams, such as 1 percent hydrocortisone (available in the [place] without prescription) are not usually helpful. A stronger prescription formula may be helpful. Steroids ? If you develop severe symptoms or the rash covers a large area (especially on the face or genitals), you may need steroid pills or injections (eg, prednisone) to help relieve itching and swelling. Pills are usually given for 14 to 21 days, with the dosage slowly decreased over time. Antibiotics ? Skin infections are a potential complication of poison noris, especially if you scratch your skin. If you develop a skin infection because of poison noris dermatitis, you may need antibiotics to treat the infection. Other treatments ? An herbal therapy called jewelweed extract has been used to treat poison noris dermatitis, although it has not been proven effective. You should not use antihistamine creams or lotions, anesthetic creams containing benzocaine, or antibiotic creams containing neomycin or bacitracin to the skin. These creams or ointments could make the rash worse. POISON NORIS PREVENTION The best way to prevent poison noris dermatitis is to identify and avoid the plants that cause it. These plants can irritate the skin year round, even during the winter months, and can still cause a reaction years after the plant dies. ? Wear protective clothing, including long sleeves and pants when working in areas where toxic plants may be found. Keep in mind that the resin and oils from the toxic plants can be carried on clothing, pets, and under fingernails. ? Wear heavy-duty vinyl gloves when doing yard work or gardening. The oils from toxic plants can seep through latex or rubber gloves. ? After coming in contact with poison noris, remove any contaminated clothing and gently wash (do not scrub or rub) you skin and under the fingernails with mild soap and water as soon as possible. Washing within two hours after exposure can reduce the likelihood and severity of symptoms; washing the skin after you have symptoms will not help. ? Creams and ointments that create a barrier between the skin and the urushiol oil may be somewhat effective for people who are frequently exposed to poison noris. Bentoquatam (Noris Block?) is one type of barrier cream that may prevent poison noris dermatitis. It must be reapplied every four hours and it leaves a gricelda residue on the skin. ? Avoid burning poisonous vegetation, which can disperse the plant particles in the smoke, irritate the skin, and cause poison noris dermatitis. Prescriptions ordered this encounter Disp Refills Start End PREDNISONE 10 MG TABLET 21 t* 0 12/19/2017 12/28/2017 Sig: Take 4 tabs daily for 3 days, then 2 tabs daily for 3 days, then 1 tab daily for 3 days with food. TRIAMCINOLONE ACETONIDE 0.025 % TOPI* 30 g 0 12/19/2017 Route: TOPICAL Sig: Apply 1 application to affected area twice daily. Encounter Status:Closed by SIGRID LUNDBERG on 12/19/17 ALLERGIES ALLERGIES DATE TYPE / CODE NAME / CODE REACTION SEVERITY SOURCE 02/28/2018 Drug azithromycin/A29990 Rash Unknown [place] Allergy/416 3635(RXNORM) [facility] [id number]([facility] ED CT) Repository 02/24/[address] [facility] INGREDI/419 Other [place] [address]641([facility] ED CT) [id number] AZITHROMYCIN [place] [address]([facility] CT) Repository ENCOUNTERS ENCOUNTERS ADMIT/DISCHARGE ACCOUNT NUMBER ADMITTING ENCOUNTER LOCATION SOURCE CLASS 04/03/2018/04/03/19 [id number] Ambulatory [address] Repository 04/03/2018/04/03/19 [id number] Ambulatory [address] MEDICAL Repository CENTERBuildi ng:AKOTB 03/27/2018 [id number] Ambulatory [address] [place] [address] RECRoom: System [id number]: Repository [id number] 03/24/2018/03/24/19 [id number] Emergency [address] Repository 02/28/2018 [id number] Ambulatory [facility] ding:LABSPEC Repository 02/28/2018/02/29/20 [id number] Ambulatory BMSBuilding: [address] Repository 12/19/2017/12/22/19 [id number] Ambulatory [address] Repository PAYERS PAYERS ENCOUNTER GUARANTOR PAYER SUBSCRIBER SOURCE 04/03/2018 MARU Cortes Primary Insurance:[facility] Isabelle MOHAN [facility] BALISDOB: UMR CHOICE PLUSPolicy BALISDOB: [facility] [id number] W Number: [id number] [id number] [place] Date: [address]Xxl: () 03/27/2018 Maru Primary Insurance:[facility] Vaishnavi Mohan [facility] BalisDOB: UMRPolicy Number: BalisDOB: System [id number] W Effective Date: [id number] [place], [place] [address]Hka: () 02/28/2018 Isabelle BRAY Primary Insurance:[facility] Isabelle BRAY Mae [id number] [facility] [id number] IIDOB: [place], [place] Number: [id number] Hospital [address]Nsk: [phone]) [id number] Repository [phone] () Date:[id number] [address] [place] [id number]: 02/28/2018 Secondary NOT GIVENUNK [place] Insurance:SELF PAY [facility] Number: Effective Repository Date:2018-02-28 02/28/2018 Isabelle Bray Primary Insurance:[facility] Isabelle Bray [place] [id number] [facility] [address]Ewfzph IIDOB: [facility] Number: [id number] [id number] Repository [address]Bnb: 330) Date:[id number] [phone] () [address] [place] [id number]: 02/28/2018 Secondary NOT GIVENUNK [place] Insurance:SELF PAY [facility] Number: Effective Repository Date:2018-02-28
== END ==
PROVIDERS: Referring Provider Obstetrics & Gynecology; Visit Provider Obstetrics & Gynecology
DX: Z12.4 Encounter for screening for malignant neoplasm of cervix (principal)
CPT/HCPCS: 87624; 88175; G0145

== ENCOUNTER → 2018-12-10 06:49 | Outpatient (CLI) | payer OTHER, SELFPAY ==
[2018-02-28 11:09] VITALS: BMI 28.5
--- NOTE | 2018-12-10 06:54 | BI_ITS ---
MAMMOGRAPHY - BILATERAL SCREENING REASON FOR EXAM: Female, 43 years old. Routine annual screening examination. PERTINENT HISTORY: Non-contributory. TECHNIQUE: Digital bilateral breast ildefonso (3D mammographic acquisition) in the CC and MLO projections. 2-D mediolateral oblique (MLO) and craniocaudad (CC) views of both breasts were obtained. CAD: Full Field Digital Mammography with Computer Added Detection was performed. COMPARISON: None. Baseline examination. FINDINGS: Breast Composition: There are scattered areas of fibroglandular density. There are no dominant masses or suspicious calcifications. No other significant abnormalities are identified. BI/SCREEN MAMM (CAD) W/ILDEFONSO BILAT IMPRESSION: Negative screening mammogram. Yearly followup mammogram recommended. (A) ASSESSMENT CATEGORY: BIRADS Category 1: Negative. A letter regarding these results will be sent to the patient by the facility within 30 days. Approximately 10% of breast cancers are not detected by mammography. A normal mammogram should not delay biopsy of a clinically suspicious abnormality. [id number] Electronically Signed: Michael Martinez, at 9:25 EDT , Service support ,
== END ==
PROVIDERS: Referring Provider Obstetrics & Gynecology; Visit Provider Obstetrics & Gynecology
DX: Z12.31 Encounter for screening mammogram for malignant neoplasm of breast (principal)
CPT/HCPCS: 77063; 77067

== ENCOUNTER → 2020-10-05 15:25 | Outpatient (CLI) | payer OTHER, SELFPAY ==
[2019-08-26 11:32] VITALS: BMI 28.5
[2020-10-05 17:49] LABS: Absolute Lymphocyte Count 2.41 X10^3/uL (0.83-4.51); Absolute Neutrophil Count 5.2 X10^3/uL (2.0-7.7); Basophil# 0.05 X10^3/uL; Basophil% 0.6 % (0-1); Eosinophil# 0.19 X10^3/uL; Eosinophils% 2.2 % (0-5); Hematocrit 39.7 % (37-47); Lymphocyte # 2.41 X10^3/ul (0.83-4.51); Lymphocyte % 27.9 % (19-41); Mean Corp Hgb Conc 32.7 g/dL (32-36); Mean Corpuscular Hgb 30.9 pg (27.0-32.0); Mean Corpuscular Volume 94.3 fL (81-99); Mean Platelet Vol. 10.7 fl (6.2-12.0); Monocyte# 0.72 X10^3/uL; Monocyte% 8.3 % (0-10); NRBC Flagged by Analyzer 0 % (0-5); Neutrophil # 5.24 X10^3/uL (2.7-7.7); Neutrophil % 60.7 % (47-70); Platelet Count 288 K/mm3 (150-450); RBC Distribution Width CV 12.3 % (11.6-14.6); RBC Distribution Width SD 42.6 fl (35.1-43.9); Red Blood Count 4.21 M/mm3 (4.2-5.4); White Blood Count 8.6 K/mm3 (4.4-11.0)
[2020-10-05 18:31] LABS: AST(SGOT) 17 U/L (15-37); Alanine Aminotransfer ALT/SGPT 31 U/L (13-56); Albumin, Serum 4.2 g/dL (3.2-5.0); Alkaline Phosphatase 85 U/L (45-117); Anion Gap 5 (5-15); BUN 9 mg/dL (7-18); BUN/Creat Ratio 11.9 RATIO (10-20); Calcium,Total 8.8 mg/dL (8.5-10.1); Chloride 103 mmol/L (98-107); Cholesterol 148 mg/dL (200); Creatinine, Serum 0.76 mg/dL (0.55-1.02); EST Glomerular Filtration Rate 89 mL/min (>60); Est Glom Filt Rate - Afr Amer 108 mL/min (>60); Glucose 82 mg/dL (74-106); High Density Lipoprotein 65 mg/dL; Potassium 3.9 mmol/L (3.5-5.1); Protein, Total 8.2 g/dL (6.4-8.2); Sodium Level 135 mmol/L (136-145); Thyroid Stim Hormone (TSH) 0.77 uIU/mL (0.358-3.74); Triglycerides 50 mg/dL; Very Low Density Lipoprotein 10 mg/dL (5-40)
== END ==
PROVIDERS: Visit Provider Family Medicine
DX: Z00.00 Encounter for general adult medical examination without abnormal findings (principal)
CPT/HCPCS: 36415; 80053; 80061; 84443; 85025

== ENCOUNTER → 2021-07-13 | Outpatient (CLI) | payer BC, SELFPAY ==
--- NOTE | 2021-07-13 07:51 | BI_ITS ---
MAMMOGRAPHY - BILATERAL SCREENING REASON FOR EXAM: Female, 45 years old. Routine annual screening examination. PERTINENT HISTORY: Non-contributory. TECHNIQUE: Digital bilateral breast ildefonso (3D mammographic acquisition) in the CC and MLO projections. 2-D mediolateral oblique (MLO) and craniocaudad (CC) views of both breasts were obtained. CAD: Full Field Digital Mammography with Computer Added Detection was performed. COMPARISON: 12/10/2018 FINDINGS: Breast Composition: There are scattered areas of fibroglandular density. There are no dominant masses or suspicious calcifications. No other significant abnormalities are identified. BI/SCRN MAMM (CAD)W/ILDEFONSO BILAT IMPRESSION: Stable bilateral screening mammogram. Yearly follow-up mammogram recommended. (A) ASSESSMENT CATEGORY: BIRADS Category 1: Negative. A letter regarding these results will be sent to the patient by the facility within 30 days. Approximately 10% of breast cancers are not detected by mammography. A normal mammogram should not delay biopsy of a clinically suspicious abnormality. [id number] Electronically Signed: Heladio Ricks, at 13:04 EDT ,
[2021-07-18 15:42] LABS: HPV APTIMA, High Risk Negative (Negative)
== END | disposition home or self-care (01) ==
PROVIDERS: Referring Provider Obstetrics & Gynecology; Visit Provider Obstetrics & Gynecology
DX: Z12.31 Encounter for screening mammogram for malignant neoplasm of breast (principal); Z12.4 Encounter for screening for malignant neoplasm of cervix
CPT/HCPCS: 77063; 77067; 87624; 88175; G0145

== ENCOUNTER → 2022-07-25 | Outpatient (CLI) | payer BC, SELFPAY ==
--- NOTE | 2022-07-25 11:09 | BI_ITS ---
MAMMOGRAPHY - BILATERAL SCREENING REASON FOR EXAM: Female, 46 years old. Routine annual screening examination. PERTINENT HISTORY: Non-contributory. TECHNIQUE: Digital bilateral breast ildefonso (3D mammographic acquisition) in the CC and MLO projections. 2-D mediolateral oblique (MLO) and craniocaudad (CC) views of both breasts were obtained. CAD: Full Field Digital Mammography with Computer Added Detection was performed. COMPARISON: Comparison is made with prior study dated July 13, 2021 and December 10, 2018. FINDINGS: Breast Composition: There are scattered areas of fibroglandular density. There are no dominant masses or suspicious calcifications. Stable small benign-appearing bilateral axillary lymph nodes. No other significant abnormalities are identified. There has been no significant change since the prior study. BI/SCRN MAMM (CAD)W/ILDEFONSO BILAT IMPRESSION: Stable bilateral screening mammogram. Yearly follow-up mammogram recommended. (A) ASSESSMENT CATEGORY: BIRADS Category 2: Benign. A letter regarding these results will be sent to the patient by the facility within 30 days. Approximately 10% of breast cancers are not detected by mammography. A normal mammogram should not delay biopsy of a clinically suspicious abnormality. [id number] Electronically Signed: Michael Martinez MD at 12:11 EDT ,
== END | disposition home or self-care (01) ==
LOC: OPBI 11:05
PROVIDERS: Referring Provider Obstetrics & Gynecology; Visit Provider Obstetrics & Gynecology
DX: Z12.31 Encounter for screening mammogram for malignant neoplasm of breast (principal)
CPT/HCPCS: 77063; 77067

== ENCOUNTER → 2023-08-10 | Outpatient (CLI) | payer BC, SELFPAY ==
--- NOTE | 2023-08-10 07:11 | BI_ITS ---
MAMMOGRAPHY - BILATERAL SCREENING 3-D TOMOSYNTHESIS REASON FOR EXAM: Female, 47 years old. screening mammogram PERTINENT HISTORY: No significant family history. TECHNIQUE: 2-D mammograms and 3-D Tomosynthesis of the breast (s) were performed. CAD was performed. COMPARISON: 07/25/2022 FINDINGS: The breast composition is composed of scattered fibroglandular density. Scattered benign calcifications are seen. No dense spiculated masses or suspicious microcalcifications are identified. No architectural distortion is identified. There is no skin thickening or retraction. There has been no significant change since the prior study. BI/SCRN MAMM (CAD)W/ILDEFONSO BILAT IMPRESSION: No mammographic signs of malignancy. Routine yearly mammograms recommended. ASSESSMENT CATEGORY: BIRADS Category 1: Negative. A letter regarding these results will be sent to the patient by the facility within 30 days. FOLLOW UP RECOMMENDATION: Yearly follow up mammogram recommended. (A) Approximately 10% of breast cancers are not detected by mammography. A normal mammogram should not delay biopsy of a clinically suspicious abnormality. Electronically Signed: Mac Carter MD at 17:25 EDT ,
== END | disposition home or self-care (01) ==
PROVIDERS: Referring Provider Obstetrics & Gynecology; Visit Provider Obstetrics & Gynecology
DX: Z12.31 Encounter for screening mammogram for malignant neoplasm of breast (principal)
CPT/HCPCS: 77063; 77067

== ENCOUNTER → 2024-07-09 | Outpatient (CLI) | payer BC, SELFPAY ==
[2024-07-09 16:33] LABS: Bacteria 0 SEEN /hpf (None Seen); Mucous, Urine 0 SEEN /hpf (<or=2+)
[2024-07-09 18:24] LABS: Absolute Lymphocyte Count 2.58 X10^3/uL (0.83-4.51); Basophil# 0.03 X10^3/uL; Basophil% 0.3 % (0-1); Eosinophil# 0.31 X10^3/uL; Eosinophils% 3.5 % (0-5); Hematocrit 39.7 % (37-47); Hemoglobin 13.1 g/dL (12.0-15.0); Lymphocyte # 2.58 X10^3/ul (0.83-4.51); Lymphocyte % 29.5 % (19-41); Mean Corpuscular Hgb 30.8 pg (27.0-32.0); Mean Corpuscular Volume 93.2 fL (81-99); Mean Platelet Vol. 10.6 fl (6.2-12.0); Monocyte% 9.1 % (0-10); NRBC Flagged by Analyzer 0 % (0-5); Neutrophil # 5.02 X10^3/uL (2.7-7.7); Neutrophil % 57.4 % (47-70); Platelet Count 267 K/mm3 (150-450); RBC Distribution Width CV 12.4 % (11.6-14.6); RBC Distribution Width SD 42.7 fl (35.1-43.9); Red Blood Count 4.26 M/mm3 (4.2-5.4); White Blood Count 8.8 K/mm3 (4.4-11.0)
[2024-07-09 18:30] LABS: Color, Urine Straw (Yellow); Glucose, Dipstick Normal (Normal); Ketone-Dipstick Negative (Negative); Leukocyte Esterase-Dipstick 25 /ul (Negative); Nitrite-Dipstick Negative (Negative); Occult Blood-Urine Negative /ul (Negative); Protein-Dipstick 15 mg/dl (Negative); Specific Gravity, Urine 1.015 (1.002-1.030); Urine Bilirubin Dipstick Negative (Negative); Urine Clarity Clear (Clear); Urine Urobilinogen Normal (Normal)
[2024-07-09 18:51] LABS: ALB/GLOB Ratio 1.2 RATIO (0.9-2.4); AST(SGOT) 44 U/L (<=31); Alanine Aminotransfer ALT/SGPT 104 U/L (<=34); Albumin, Serum 4.5 g/dL (3.5-5.0); Alkaline Phosphatase 120 U/L (35-104); Anion Gap 13 (5-15); BUN 10 mg/dL (4-19); BUN/Creat Ratio 13.7 RATIO (10-20); Calcium,Total 9.7 mg/dL (7.6-11.0); Carbon Dioxide 23.5 mmol/L (21.0-32.0); Chloride 103 mmol/L (98-108); Cholesterol 190 mg/dL (<=200); Creatinine, Serum 0.73 mg/dL (0.70-1.20); EST Glomerular Filtration Rate 103 (>60); Globulin 3.6 g/dL (2.2-4.2); Glucose 75 mg/dL (70-99); High Density Lipoprotein 65 mg/dL; Low Density Lipoprotein Calc. 103 mg/dL; Potassium 3.9 mmol/L (3.3-5.1); Sodium Level 139 mmol/L (133-145); Thyroid Stim Hormone (TSH) 0.973 uIU/mL (0.300-4.200); Total Bilirubin 0.52 mg/dL (0.00-1.30); Triglycerides 110 mg/dL; Very Low Density Lipoprotein 22 mg/dL (5-40); cholesterol:hdl ratio screen 2.91
[2024-07-09 19:19] LABS: Red Blood Cells-Urine 0-5 SEEN /hpf (0-5); Squamous Epithelial Cells - UA 0-5 SEEN /hpf (5-10); White Blood Cells 0-5 SEEN /hpf (0-5)
[2024-07-11 11:57] LABS: Hepatitis B Surface Antigen Nonreactive (Nonreactive); Hepatitis C Antibody Nonreactive (Nonreactive)
== END | disposition home or self-care (01) ==
LOC: MFPLAB 16:31
PROVIDERS: PCP Family Medicine; Referring Provider Family Medicine; Visit Provider Family Medicine
DX: Z00.00 Encounter for general adult medical examination without abnormal findings (principal); R79.89 Other specified abnormal findings of blood chemistry
CPT/HCPCS: 36415; 80053; 80061; 81001; 84443; 85025; 86803; 87340

== ENCOUNTER → 2024-07-11 | Outpatient (CLI) | payer BC, SELFPAY ==
[2024-07-11 18:40] LABS: Hepatitis B Surface Antibody Nonreactive
== END | disposition home or self-care (01) ==
LOC: MFPLAB 14:16
PROVIDERS: PCP Family Medicine; Referring Provider Family Medicine; Visit Provider Family Medicine
DX: R79.89 Other specified abnormal findings of blood chemistry (principal)
CPT/HCPCS: 36415; 86706

== ENCOUNTER → 2024-09-10 | Outpatient (CLI) | payer BC, SELFPAY ==
--- NOTE | 2024-09-10 10:30 | BI_ITS ---
EXAM: SCRN MAMM (CAD)W/ILDEFONSO BILAT DATE: 09/10/2024 CLINICAL HISTORY: F, Age 48 y/o , SCREENING FOR BREAST CANCER No family history. TECHNIQUE: SCRN MAMM (CAD)W/ILDEFONSO BILAT COMPARISON: Prior exam(s) dated prior study dated August 10, 2023.. FINDINGS: TISSUE DENSITY: The breast tissue is composed of scattered areas of fibroglandular density. Bilateral Breast Mammographic Findings: No significant masses, calcifications or other abnormalities are identified. No suspicious masses, areas of developing architectural distortion, or suspicious calcifications. There has been no significant interval change. BI/SCRN MAMM (CAD)W/ILDEFONSO BILAT IMPRESSION: Stable examination. OVERALL FINAL ASSESSMENT BI-RADS 1: NEGATIVE. RECOMMEND ANNUAL MAMMOGRAPHIC SCREENING. RECOMMENDATION: Routine annual follow-up in 1 Year A letter with findings and recommendations will be mailed to the patient. Reading Location: [id number]
--- OUTSIDE RECORDS SUMMARY | 2024-09-10 21:33 | XMS RPT_ITS | CCD ---
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 Dalila Enriquez Attending Provider Care Physician, No Primary Primary Care Provider Unavailable Care Physician, No Primary Referring Provider Un available Dr. Dalila Enriquez Attending Provider [phone] Tyrone MASON, Dr. Issa Michael Primary Care Provider Tyrone MASON, Dr. Issa Michael Attending Provider [phone] Tyrone MASON, Dr. Issa Michael Referring Provider Mina MASON, Dr. Conner Attending Provider [phone] Mina MASON, Dr. Conner Referring Provider Care Physician, No Primary Referring Provider Un available Issa Hansen Referring Unavailable Issa Hansen Attending Unavailable Issa Hansen Primary Care Unavailable Issa Hansen Attending Unavailable Issa Hansen Primary Care Unavailable Issa Hansen Referring Unavailable Dalila Enriquez Referring Unavailable Dalila Enriquez Attending Unavailable Issa Hansen Primary Care Unavailable Issa Hansen Primary Care Unavailable Care Physician, No Primary Referring Unava ilDalila Fuller Attending Unavailable Allergies Allergy Classification Reported Allergen(s) Allergy Type Date of Onset Reaction(s) Facility (7 sources) Azithromycin; Translations: [AZITHROMYCIN] Drug Allergy 02-24-2005 [facility] Repository Medications Current Medications Medication Drug Class(es) Dates Sig (Normalized) Sig (Original) levonorgestrel 0.411905 mg/hr intrauterine system (7 sources) Progestin, Progestin-containi ng Intrauterine Device Start: 08-26-2019 Levonorgestrel (Liletta) 20.1 mcg/24 hrs (6 yrs) 52 mg intrauterine device Active 1 NMA INTRA-UTER ONCE August 26, 2019 12:00am as a single dose Start: 08-26-2019 End: 08-26-2019 Levonorgestrel (Liletta) 20. 1 mcg/24 hrs (6 yrs) 52 mg intrauterine device Active 1 DEVICE INTRA-UTER ONCE August 26, 2019 11:32am as a single dose Start: 02-28-2018 End: 08-26-2019 Levonorgestrel (Mirena) 20 m cg/24 hr (5 years) intrauterine device Discontinued 1 NMA INTRA-UTER ONCE February 28, 2018 1:00am August 26, 2019 11:32am Start: 02-28-2018 End: 08-26-2019 Levonorgestrel (Mirena) 20 m cg/24 hr (5 years) intrauterine device Discontinued 1 INSERT INTRA-UTER ONCE February 28, 2018 12:10pm August 26, 2019 11:32am Problems Active Problems Problem Classification Problem Date Documented Date Episodic/Chronic Allergic reactions (2 sources) Allergy status to other antibiotic agents status; Translations: [Allergy status to other antibiotic agents status] Onset: 03-27-2018 Episodic Contraceptive and procreative management (3 sources) Patient encounter status; Translations: [Encounter for contraceptive management, unspecified] 08-26-2019 Episodic Crushing injury or internal injury (6 sources) Crushing injury of left ring finger, initial encounter; Translations: [Crushing injury of left little finger, initial encounter] Onset: 03-27-2018 Episodic Fracture of upper limb (10 sources) Displaced fracture of middle phalanx of left ring finger, initial encounter for closed fracture; Translations: [Displaced fracture of distal phalanx of left little finger, subsequent encounter for fracture with routine healing] Onset: 03-27-2018 Episodic Open wounds of extremities (4 sources) Laceration without foreign body of left ring finger with damage to nail, initial encounter; Translations: [Laceration without foreign body of left little finger without damage to nail, initial encounter] Onset: 03-27-2018 Episodic Other injuries and conditions due to external causes (1 source) Other injury of unspecified body region, initial encounter; Translations: [Other injury of unspecified body region, initial encounter] Onset: 03-24-2018 Other screening for suspected conditions (not mental disorders or infectious disease) (3 sources) Encounter for screening mammogram for malignant neoplasm of breast; Translations: [Other specified abnormal findings of blood chemistry] Onset: 07-16-2024 Episodic Residual codes; unclassified (2 sources) Acquired absence of other specified parts of digestive tract; Translations: [Acquired absence of other specified parts of digestive tract] Onset: 03-27-2018 Episodic Screening and history of mental health and substance abuse codes (2 sources) Personal history of nicotine dependence; Translations: [Personal history of nicotine dependence] Onset: 03-27-2018 Episodic Unclassified (3 sources) OT EVAL Onset: 04-03-2018 Past or Other Problems Problem Classification Problem Date Documented Da te Episodic/Chronic Unclassified (3 sources) Mirena IUD placed on 08/0112-06-2021 Results Test Name Value Interpretation Reference Range Facility Care Professional Office Visit Reporton 09-10-2024 Care Professional Office Visit Report [facility]'s [address], [facility] [address] [place] [address] OFFICE VISIT Date of Service: 09/10/24 MR#: [id number] Acct: [id number] Name: MARU BRAY Rep #: [id number] : 1975 Provider: Dr. 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 Is patient in pain?: No Allergies azithromycin Adverse Reaction (Unknown, Verified 09/10/24 11:08) rash Medications ???Medication ???Instructions ???Recorded ???Confirmed ???Type levonorgestrel 20.4 mcg/24 hr (up 1 device intrauterine ONCE 09/10/24 History to 8 yrs) 52 mg intrauterine device (Liletta) Is last menstrual period known: No Post menopausal: No Patient : No : No PFSH Medical History Mirena IUD placed on 08/01 Surgical History History of cholecystectomy History of tonsillectomy and adenoidectomy Hx of removal of ovary Social History number of children: 2 current occupational status: employed current occupation: [employer] Smoking Status: Never smoker alcohol intake: never substance use type: does not use seatbelt use: always do you feel safe at home: Yes additional social history: [place] History 2 Elective abortions Hx Para 2 Spontaneous abortions Hx # Term Pregnancies Ectopic pregnancies Hx # Pregnancies Multiple births # of living children 2 Past Pregnancies Del. Date Name GA/Weeks Outcome Route Bth Weight Infant Gen Labor Lgth Anesthesia Del Locatn Provider FOB Unknown Kacy 2001 Unknown [place] 2004 HPI Encounter for routine gynecological examination Details: MARU BRAY is a 48 year old who presents for annual exam. Last PAP: 07/13/2021 - normal History of abnormal PAP: Last mammogram: this morning History of abnormal mammogram: Colon cancer screening: Other preventative health care screenings: PCP Tyrone Female Reproductive History Last Menstrual Period: 08/03/23 Cycle Length: >35 Questions: metorrhagia: No, sexually active: Yes, dyspareunia: No and PCB: No Menopausal Symptoms: Yes hot flashes, Yes night sweats, No weight change, No mood changes, No difficulty concentrating, No sleep problems and No change in libido ROS Const Constitutional: Reports as per HPI and night sweats; Denies fatigue, increased appetite, poor appetite, weight gain or weight loss Cardio Card: Denies chest pain Resp Resp: Denies cough or dyspnea GI GI: Reports as per HPI; Denies abdominal pain, bloating, constipation, nausea or vomiting : Reports as per HPI, hot flashes and other; Denies difficulty voiding, dysuria, hematuria, nipple discharge, pelvic pain, prolapse symptoms, urinary frequency, urinary incontinence, urinary urgency, vaginal discharge, vaginal dryness, vaginal odor or vaginal pruritus Skin Skin/Breast: Denies changing lesions, breast mass, breast pain, breast skin changes or nipple discharge Psych Psych: Denies anxiety, change in libido, depression or difficulty concentrating Exam Const General: cooperative, healthy appearing, comfortable, no acute distress, well developed and well groomed [facility] Head: normal to inspection and normocephalic Ears: hearing grossly normal bilaterally and external ears normal Nose: external nose normal Face and sinus: normal facial exam Neck Neck: normal visual inspection, full ROM and no lymphadenopathy Thyroid: thyroid normal Chest Chest palpation inspection: normal inspection of the chest Breast inspection: normal inspection of the breasts and normal inspection of the axillae Breast palpation: normal palpation of the breasts, normal palpation of the axillae and no axillary lymphadenopathy Resp Effort Inspection: normal respiratory effort GI Inspection: normal to inspection and non-distended Palpation: soft, no hepatosplenomegaly and no guarding General: bladder normal to palpation External Female Exam: normal external appearance, normal appearance of the urethra and no lesions Urethra: normal appearance of the urethra and normal palpation Speculum Exam - Vagina: normal appearance of the vagina (iud strings seen) and normal vaginal discharge Speculum Exam - Cervix: normal appearance of the cervix, no cervical discharge, no lesions and nontender Bimanual Exam- Vagina Uterus: normal bimanual exam, uterine size normal, bladder normal to palpation, No tender, uterine mobili (more content not included)... Normal [facility] SCRN MAMM (CAD)W/ILDEFONSO BILATo n 09-10-2024 SCRN MAMM (CAD)W/ILDEFONSO BILAT [facility] Imaging Services [address] [place] [address] SCRN MAMM (CAD)W/ILDEFONSO BILAT MR#: [id number] Acct: [id number] Name: MARU BRAY Rep #: [id number] : 1975 F 48 From: Michael galindo MD PCP: Dr. Issa Hansen MD Status: [facility] Study: SCRN MAMM (CAD)W/ILDEFONSO BILAT Date of Exam: 08/19 07/12 Exam# [id number] Ordering Dr: Dalila Enriquez EXAM: SCRN MAMM (CAD)W/ILDEFONSO BILAT DATE: 09/10/2024 CLINICAL HISTORY: F, Age 48 y/o , SCREENING FOR BREAST CANCER No family history. TECHNIQUE: SCRN MAMM (CAD)W/ILDEFONSO BILAT COMPARISON: Prior exam(s) dated prior study dated August 10, 2023.. FINDINGS: TISSUE DENSITY: The breast tissue is composed of scattered areas of fibroglandular density. Bilateral Breast Mammographic Findings: No significant masses, calcifications or other abnormalities are identified. No suspicious masses, areas of developing architectural distortion, or suspicious calcifications. There has been no significant interval change. BI/SCRN MAMM (CAD)W/ILDEFONSO BILAT IMPRESSION: Stable examination. OVERALL FINAL ASSESSMENT BI-RADS 1: NEGATIVE. RECOMMEND ANNUAL MAMMOGRAPHIC SCREENING. RECOMMENDATION: Routine annual follow-up in 1 Year A letter with findings and recommendations will be mailed to the patient. Reading Location: [id number] CC: Dr. Issa Hansen MD; Dr. 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 [place], [address] Hepatitis C Antibodyon 07-11 Hepatitis C Ab Non-Reactive Normal Nonreactive [facility] Comment on above: Order Comment: DARLENE Michael ADD HEBSAG HECAB TO BLOOD DRAWN 07/09/24 PER Order Date: 07/09/24 Order Info: [id number] - CMP Order Info: [id number] - LIPID Order Info: [id number] - TSH Result Comment: Reac tive: Presumptive evidence of antibodies to HCV. Follow CDC recommendations for supplemental testing. Non-Reactive: Antibodies to HCV were not detected; does not exclude the possibility of exposure to HCV Reactive Results are presumptive evidence of antibodies to HCV. Follow CDC recommendations for supplemental testing. Order confirmation testing: HCV Quant by PCR testing - HCVPCR #[id number] Non Reactive: < 0.8 Equivocal: >/= 0.8 to < 1.0 Reactive: >/= 1.[address] [facility] requires that a reactive/equivocal HCV antibody result be sent out for confirmation. HCV Quant by PCR testing. Performed By: #### L 3890.6301, L400.0001, L3890.6102 #### [facility] [address] [place], [place], [address] L3890.6102on 07-11-2024 HEP B Surf Ag Non-Reactive Normal Nonreactive [facility] Comment on above: Order Comment: DARLENE Michael ADD HEBSAG HECAB TO BLOOD DRAWN 07/09/24 PER Order Date: 07/09/24 Order Info: [id number] - CMP Order Info: [id number] - LIPID Order Info: [id number] - TSH Result Comment: Reac tive: Presumptive evidence of HBV. Repeatedly reactive samples must be confirmed using a neutralization test ([employer] Enterprisess HBsAg Confirmatory Test) Non-Reactive: HBsAg not detected; does not exclude the possibility of exposure to HBV Performed By: #### L 3890.6301, L400.0001, L3890.6102 #### [facility] [address] [place], [place], [address] Serum hepatitis B virus surf pily antibody detectionOrdered By: Issa Hansen on 07-11-2024 HBV surface Ab Ql (S) Non-Reactive [facility] Comment on above: <8.5 mIU/mL: Non-Mangum ctive8.5<= x <11.5 mIU/mL: Indeterminate>=11.5 mIU/mL: Reactive Non Reactive: Inconsistent with immunity less than <10 mIU/mL Reactive: Consistent with immunity greater than or equal to 10 mIU/mL Absolute lymphocyte countOrd ered By: Issa Hansen on 07-09-2024 Lymphocytes Auto (Unsp spec) [#/Vol] 2.58 10*3/uL 0.83-4.51 [facility] Absolute neutrophil countOrd ered By: Issa Hansen on 07-09-2024 Neutrophils (Bld) [#/Vol] 5.0 10*3/uL 2.0-7.7 [facility] Anion gap in Serum or Plasma Ordered By: Issa Hansen on 07-09-2024 Anion gap [Moles/Vol] 13 mmol/L 5- [facility] Automated lymphocyte count a s percentage of total leukocytesOrdered By: Issa Hansen on 07-09-2024 Lymphocytes/100 WBC Auto (Unsp spec) 29.5 % - [facility] BUN/creatinine ratioOrdered By: Issa Hansen on 07-09-2024 Urea nitrogen/Creatinine [Mass ratio] 13.7 mg/mg 10- [facility] Basophil percentageOrdered B y: Issa Hansen on 07-09-2024 Basophils/100 WBC (Bld) 0.3 % 0-1 [facility] Bilirubin Test strip Ql (U)O rdered By: Issa Hansen on 07-09-2024 Bilirubin Ql (U) Negative Negative [facility] Bilirubin, totalOrdered By: Issa Hansen on 07-09-2024 Bilirubin [Mass/Vol] 0.52 mg/dL 0.00-1.30 [facility] CBC W/Diff, Automatedon 06-19 Absolute Lymph 2.58 X10 3/uL Normal 0.83-4.51 [facility] Comment on above: Order Comment: Order Date: 07/09/24 Order Info: [id number] - CBCD Performed By: #### L 500.1783, L501.1544, L500.2680, L100.0100 #### [facility] [address] [place], [place], [id number] Absolute Neut 5.0 X10 3/uL Normal 2.0-7.7 [facility] Comment on above: Order Comment: Order Date: 07/09/24 Order Info: [id number] - CBCD Performed By: #### L 500.4050, L501.9520, L500.4100, L100.0100 #### [facility] [address] [place], [address] Basophils/100 WBC (Bld) 0.3 % Normal 0-1 [facility] Comment on above: Order Comment: Order Date: 07/09/24 Order Info: [id number] - CBCD Performed By: #### L 500.4050, L501.9520, L500.4100, L100.0100 #### [facility] [address] [place], [address] Eosinophils/100 WBC (Bld) 3.5 % Normal 0-5 [facility] Comment on above: Order Comment: Order Date: 07/09/24 Order Info: [id number] - CBCD Performed By: #### L 500.4050, L501.9520, L500.4100, L100.0100 #### [facility] [address] [place], [address] Erythrocyte distribution width (RBC) [Ratio] 12.4 % Normal 11.6-14.6 [facility] Comment on above: Order Comment: Order Date: 07/09/24 Order Info: [id number]- - CBCD Performed By: #### L 500.4050, L501.9520, L500.4100, L100.0100 #### [facility] [address] [place], [address] Hematocrit (Bld) [Volume fraction] 39.7 % Normal 37-47 [facility] Comment on above: Order Comment: Order Date: 07/09/24 Order Info: [id number] - CBCD Performed By: #### L 500.4050, L501.9520, L500.4100, L100.0100 #### [facility] [address] [place], [address] Hemoglobin (Bld) [Mass/Vol] 13.1 g/dL Normal 12.0-15.0 [facility] Comment on above: Order Comment: Order Date: 07/09/24 Order Info: [id number] - CBCD Performed By: #### L 500.4050, L501.9520, L500.4100, L100.0100 #### [facility] [address] [place], [address] IG% 0.200 Normal 0.0-0.9 [facility] Comment on above: Order Comment: Order Date: 07/09/24 Order Info: [id number]- - CBCD Result Comment: IG% - Immature Granulocytes (promyelocytes, myelocytes and metamyelocytes) > 1% indicates that a LEFT SHIFT is Present. Performed By: #### L 500.4050, L501.9520, L500.4100, L100.0100 #### [facility] [address] [place], [address] Lymphocytes/100 WBC (Bld) 29.5 % Normal 19-41 [facility] Comment on above: Order Comment: Order Date: 07/09/24 Order Info: [id number] - CBCD Performed By: #### L 500.4050, L501.9520, L500.4100, L100.0100 #### [facility] [address] [place], [address] MCH (RBC) [Entitic mass] 30.8 pg Normal 27.0-32.0 [facility] Comment on above: Order Comment: Order Date: 07/09/24 Order Info: [id number] - CBCD Performed By: #### L 500.4050, L501.9520, L500.4100, L100.0100 #### [facility] [address] [place], [address] MCHC (RBC) [Mass/Vol] 33.0 g/dL Normal 32-36 [facility] Comment on above: Order Comment: Order Date: 07/09/24 Order Info: [id number] - CBCD Performed By: #### L 500.4050, L501.9520, L500.4100, L100.0100 #### [facility] [address] [place], [address] MCV (RBC) [Entitic vol] 93.2 fL Normal 81-99 [facility] Comment on above: Order Comment: Order Date: 07/09/24 Order Info: [id number] - CBCD Performed By: #### L 500.4050, L501.9520, L500.4100, L100.0100 #### [facility] [address] [place], [address] Monocytes/100 WBC (Bld) 9.1 % Normal 0-10 [facility] Comment on above: Order Comment: Order Date: 07/09/24 Order Info: [id number] - CBCD Performed By: #### L 500.4050, L501.9520, L500.4100, L100.0100 #### [facility] [address] [place], [address] Neutrophils/100 WBC (Bld) 57.4 % Normal 47-70 [facility] Comment on above: Order Comment: Order Date: 07/09/24 Order Info: [id number] - CBCD Performed By: #### L 500.4050, L501.9520, L500.4100, L100.0100 #### [facility] [address] [place], [address] Nucleated RBC (Bld) [#/Vol] 0 10*3/uL Normal 0-5 [facility] Comment on above: Order Comment: Order Date: 07/09/24 Order Info: [id number] - CBCD Performed By: #### L 500.4050, L501.9520, L500.4100, L100.0100 #### [facility] [address] [place], [address] Platelet mean volume (Bld) [Entitic vol] 10.6 fL Normal 6.2-12.0 [facility] Comment on above: Order Comment: Order Date: 07/09/24 Order Info: [id number] - CBCD Performed By: #### L 500.4050, L501.9520, L500.4100, L100.0100 #### [facility] [address] [place], [address] Platelets (Bld) [#/Vol] 267 10*3/uL Normal 150-450 [facility] Comment on above: Order Comment: Order Date: 07/09/24 Order Info: [id number] - CBCD Performed By: #### L 500.4050, L501.9520, L500.4100, L100.0100 #### [facility] [address] [place], [address] RBC (Bld) [#/Vol] 4.26 10*6/uL Normal 4.2-5.4 [facility] Comment on above: Order Comment: Order Date: 07/09/24 Order Info: [id number] - CBCD Performed By: #### L 500.4050, L501.9520, L500.4100, L100.0100 #### [facility] [address] [place], [address] RDW SD 42.7 fl Normal 35.1-43.9 [facility] Comment on above: Order Comment: Order Date: 07/09/24 Order Info: [id number] - CBCD Performed By: #### L 500.4050, L501.9520, L500.4100, L100.0100 #### [facility] [address] [place], [address] WBC (Bld) [#/Vol] 8.8 10*3/uL Normal 4.4-11.[address] [facility] Comment on above: Order Comment: Order Date: 07/09/24 Order Info: [id number] - CBCD Performed By: #### L 500.4050, L501.9520, L500.4100, L100.0100 #### [facility] [address] [place], [address] Calculated very low density lipoprotein (VLDL) cholesterol measurementOrdered By: Issa Hansen on 07-09-2024 Calculated very low density lipoprotein (VLDL) cholesterol measurement 22 mg/dL 5-40 [facility] Carbon dioxide, total [Moles /volume] in Central venous bloodOrdered By: Issa Hansen on 07-09-2024 CO2 [Moles/Vol] 23.5 mmol/L 21.0-32.0 [facility] Chloride assayOrdered By: Rhea Hansen on 07-09-2024 Chloride [Moles/Vol] 103 mmol/L 98-108 [facility] Comprehensive Metabolic Prof ilon 07-09-2024 Albumin [Mass/Vol] 4.5 g/dL Normal 3.5-5.[address] [facility] Comment on above: Order Comment: Order Date: 07/09/24 Order Info: [id number] - CMP Order Info: [id number] - LIPID Order Info: [id number] - TSH Performed By: #### L 500.4050, L501.9520, L500.4100, L100.0100 #### [facility] [address] [place], [address] Albumin/Globulin [Mass ratio] 1.2 {ratio} Normal 0.9-2.4 [facility] Comment on above: Order Comment: Order Date: 07/09/24 Order Info: [id number] - CMP Order Info: [id number] - LIPID Order Info: [id number] - TSH Performed By: #### L 500.4050, L501.9520, L500.4100, L100.0100 #### [facility] [address] [place], [address] ALK PHOS 120 U/L High 35-104 [facility] Comment on above: Order Comment: Order Date: 07/09/24 Order Info: [id number]- - CMP Order Info: [id number] - LIPID Order Info: [id number] - TSH Performed By: #### L 500.4050, L501.9520, L500.4100, L100.0100 #### [facility] [address] [place], [address] ALT [Catalytic activity/Vol] 104 U/L High <=34 [facility] Comment on above: Order Comment: Order Date: 07/09/24 Order Info: [id number]- - CMP Order Info: [id number] - LIPID Order Info: 301-3 - TSH Performed By: #### L 500.4050, L501.9520, L500.4100, L100.0100 #### [facility] [address] [place], [address] AST [Catalytic activity/Vol] 44 U/L High <=31 [facility] Comment on above: Order Comment: Order Date: 07/09/24 Order Info: 07 - CMP Order Info: [id number] - LIPID Order Info: [id number] - TSH Performed By: #### L 500.4050, L501.9520, L500.4100, L100.0100 #### [facility] [address] [facility] [address] [place], [address] Bilirubin [Mass/Vol] 0.52 mg/dL Normal 0.00-1.30 [facility] Comment on above: Order Comment: Order Date: 07/09/24 Order Info: 0786- - CMP Order Info: [id number] - LIPID Order Info: [id number] - TSH Performed By: #### L 500.4050, L501.9520, L500.4100, L100.0100 #### [facility] [address] [place], [address] BUN/CRE 13.7 RATIO Normal 10-20 [facility] Comment on above: Order Comment: Order Date: 07/09/24 Order Info: 07- - CMP Order Info: [id number] - LIPID Order Info: [id number] - TSH Performed By: #### L 500.4050, L501.9520, L500.4100, L100.0100 #### [facility] [address] [place], [address] Calcium [Mass/Vol] 9.7 mg/dL Normal 7.6-11.[address] [facility] Comment on above: Order Comment: Order Date: 07/09/24 Order Info: 0786- - CMP Order Info: [id number] - LIPID Order Info: [id number] - TSH Performed By: #### L 500.4050, L501.9520, L500.4100, L100.0100 #### [facility] [address] [place], [address] Chloride [Moles/Vol] 103 mmol/L Normal 98-108 [facility] Comment on above: Order Comment: Order Date: 07/09/24 Order Info: 0786- - CMP Order Info: [id number] - LIPID Order Info: [id number] - TSH Performed By: #### L 500.4050, L501.9520, L500.4100, L100.0100 #### [facility] [address] [place], [address] CO2 [Moles/Vol] 23.5 mmol/L Normal 21.0-32.0 [facility] Comment on above: Order Comment: Order Date: 07/09/24 Order Info: [id number] - CMP Order Info: [id number] - LIPID Order Info: [id number] - TSH Performed By: #### L 500.4050, L501.9520, L500.4100, L100.0100 #### [facility] [address] [place], [address] Creatinine [Mass/Vol] 0.73 mg/dL Normal 0.70-1.20 [facility] Comment on above: Order Comment: Order Date: 07/09/24 Order Info: 07- - CMP Order Info: - LIPID Order Info: [id number] - TSH Performed By: #### L 500.4050, [id number], L500.4100, L100.0100 #### [facility] [address] [place], [address] GAP 13 Normal 5-15 [facility] Comment on above: Order Comment: Order Date: 07/09/24 Order Info: [id number] - CMP Order Info: - LIPID Order Info: [id number] - TSH Performed By: #### L 500.4050, L501.9520, L500.4100, L100.0100 #### [facility] [address] [place], [address] GFR/1.73 sq M.predicted among non-blacks MDRD (S/P/Bld) [Vol rate/Area] 103 mL/min/{1.73_m2} Normal >60 [facility] Comment on above: Order Comment: Order Date: 07/09/24 Order Info: [id number] - CMP Order Info: - LIPID Order Info: [id number] - TSH Result Comment: mL/m in/1.73m2 CKD-EPI Creatinine Equation (2020) Performed By: #### L 500.4050, L501.9520, L500.4100, L100.0100 #### [facility] [address] [place], [address] Globulin (S) [Mass/Vol] 3.6 g/dL Normal 2.2-4.2 [facility] Comment on above: Order Comment: Order Date: 07/09/24 Order Info: [id number] - CMP Order Info: - LIPID Order Info: [id number] - TSH Performed By: #### L 500.4050, L501.9520, L500.4100, L100.0100 #### [facility] [address] [place], [address] Glucose [Mass/Vol] 75 mg/dL Normal 70-[address] [facility] Comment on above: Order Comment: Order Date: 07/09/24 Order Info: 0786- - CMP Order Info: [id number] - LIPID Order Info: [id number] - TSH Performed By: #### L 500.4050, L501.9520, L500.4100, L100.0100 #### [facility] [address] [place], [address] Potassium [Moles/Vol] 3.9 mmol/L Normal 3.3-5.1 [facility] Comment on above: Order Comment: Order Date: 07/09/24 Order Info: 07 - CMP Order Info: [id number] - LIPID Order Info: [id number] - TSH Performed By: #### L 500.4050, L501.9520, L500.4100, L100.0100 #### [facility] [address] [place], [address] Sodium [Moles/Vol] 139 mmol/L Normal 133-[address] [facility] Comment on above: Order Comment: Order Date: 07/09/24 Order Info: 0786- - CMP Order Info: [id number] - LIPID Order Info: [id number] - TSH Performed By: #### L 500.4050, [id number], L500.4100, L100.0100 #### [facility] [address] [place], [address] T PROT 8.0 g/dL Normal 5.9-8.4 [facility] Comment on above: Order Comment: Order Date: 07/09/24 Order Info: 0786- - CMP Order Info: [id number] - LIPID Order Info: [id number] - TSH Performed By: #### L 500.4050, L501.9520, L500.4100, L100.0100 #### [facility] [address] [place], [address] Urea nitrogen [Mass/Vol] 10 mg/dL Normal 4-19 [facility] Comment on above: Order Comment: Order Date: 07/09/24 Order Info: [id number] - CMP Order Info: [id number] - LIPID Order Info: [id number] - TSH Performed By: #### L 500.4050, L501.9520, L500.4100, L100.0100 #### [facility] [address] [place], [address] Eosinophil percentageOrdered By: Issa Hansen on 07-09-2024 Eosinophils/100 WBC (Bld) 3.5 % 0-5 [facility] Erythrocyte distribution wid th ratioOrdered By: Issa Hansen on 07-09-2024 Erythrocyte distribution width (RBC) [Ratio] 12.4 % 11.6-14.6 [facility] Erythrocyte distribution wid th standard deviationOrdered By: Issa Hansen on 07-09-2024 Erythrocyte distribution width (RBC) [Ratio] 42.7 fl 35.1-43.9 [facility] Glomerular filtration rate ( GFR) estimation/1.73 sq m using serum, plasma, or whole bOrdered By: Issa Hansen on 07-09-2024 GFR/1.73 sq M.predicted among non-blacks MDRD (S/P/Bld) [Vol rate/Area] 103 mL/min/{1.73_m2} >60 [facility] Comment on above: mL/min/1.73m2 CKD-EP I Creatinine Equation (2020) Hematocrit Auto (Bld) [Volum e fraction]Ordered By: Issa Hansen on 07-09-2024 Hematocrit (Bld) [Volume fraction] 39.7 % 37-47 [facility] Hemoglobin measurementOrdere d By: Issa Hansen on 07-09-2024 Hemoglobin (Bld) [Mass/Vol] 13.1 g/dL 12.0-15.0 [facility] Immature granulocytes/100 WB C Auto (Bld)Ordered By: Issa Hansen on 07-09-2024 Immature granulocytes/100 WBC (Bld) 0.200 % 0.0-0.9 [facility] Comment on above: IG% - Immature Granu locytes (promyelocytes, myelocytes and metamyelocytes) > 1% indicates that a LEFT SHIFT is Present. Ketones Test strip Ql (U)Ord ered By: Issa Hansen on 07-09-2024 Ketones Ql (U) Negative Negative [facility] LDL calc ser/plasOrdered By: Issa Hansen on 07-09-2024 Cholesterol in LDL [Mass/Vol] 103 mg/dL [facility] Comment on above: Pimmptefar=797-230 m g/dL & Higher Cuje=145 mg/dL or greater Laboratory - Chemistry and C hemistry - challengeOrdered By: Issa Hansen on 07-09-2024 AST [Catalytic activity/Vol] 44 U/L High <32 [facility] - Microbiology an d Antimicrobial susceptibilityOrdered By: Issa Hansen on 07-09-2024 HBV surface Ag Ql (S) Non-Reactive Nonreactive [facility] Comment on above: Reactive: Presumptiv e evidence of HBV. Repeatedly reactive samples must be confirmed using a neutralization test ([employer] Enterprisess HBsAg Confirmatory Test)Non-Reactive: HBsAg not detected; does not exclude the possibility of exposure to HBV Lipid Profileon 07-09-2024 CHOL:HDL 2.91 Normal [facility] Comment on above: Order Comment: Order Date: 07/09/24 Order Info: [id number] - CMP Order Info: [id number] - LIPID Order Info: [id number] - TSH Performed By: #### L 500.4050, L501.9520, L500.4100, L100.0100 #### [facility] [address] [facility] [place], [place], [id number] Cholesterol [Mass/Vol] 190 mg/dL Normal <=200 [facility] Comment on above: Order Comment: Order Date: 07/09/24 Order Info: [id number] - CMP Order Info: [id number] - LIPID Order Info: [id number] - TSH Result Comment: Chol esterol level, Desirable <200 mg/dL Borderline high cholesterol 200-239 mg/dL High cholesterol >=240 mg/dL Recommendations of the NCEP Adult Treatment Panel for the following risk-cutoff thresholds for the [place] population. Performed By: #### L 500.4050, L501.9520, L500.4100, L100.0100 #### [facility] [address] [place], [address] Cholesterol in HDL [Mass/Vol] 65 mg/dL Normal [facility] Comment on above: Order Comment: Order Date: 07/09/24 Order Info: 0786- - CMP Order Info: - LIPID Order Info: 3 - TSH Result Comment: [place]oshia onal Cholesterol Education Program (NCEP) guidelines: <40 mg/dL: Low HDL-cholesterol (major risk factor for CHD) >= 60 mg/dL: High HDL-cholesterol (negative risk factor for CHD) HDL-cholesterol is affected by a number of factors, e.g. smoking, exercise, hormones, sex and age. Performed By: #### L 500.4050, L501.9520, L500.4100, L100.0100 #### [facility] [address] [place], [address] Cholesterol in LDL [Mass/Vol] 103 mg/dL Normal [facility] Comment on above: Order Comment: Order Date: 07/09/24 Order Info: 07 - CMP Order Info: - LIPID Order Info: [id number] - TSH Result Comment: Bord edjskz=756-866 mg/dL Higher Flmo=509 mg/dL or greater Performed By: #### L 500.4050, L501.9520, L500.4100, L100.0100 #### [facility] [address] [place], [address] Cholesterol in VLDL [Mass/Vol] 22 mg/dL Normal 5-40 [facility] Comment on above: Order Comment: Order Date: 07/09/24 Order Info: 07 - CMP Order Info: - LIPID Order Info: [id number] - TSH Performed By: #### L 500.4050, L501.9520, L500.4100, L100.0100 #### [facility] [address] [place], [address] Triglyceride [Mass/Vol] 110 mg/dL Normal [facility] Comment on above: Order Comment: Order Date: 07/09/24 Order Info: [id number] - CMP Order Info: [id number] - LIPID Order Info: [id number] - TSH Result Comment: The drugs N-Acetylcysteine and Metamizole may falsely depress this assay. Normal range: <150 mg/dL Borderline High: 150-199 mg/dL High: 200-499 mg/dL Very High: >500 mg/dL Performed By: #### L 500.4050, L501.9520, L500.4100, L100.0100 #### [facility] [address] [place], [address] MCV (mean corpuscular volume ) determinationOrdered By: Issa Hansen on 07-09-2024 MCV (RBC) [Entitic vol] 93.2 fL 81-99 [facility] Mean corpuscular hemoglobin (MCH) determinationOrdered By: Issa Hansen on 07-09-2024 MCH (RBC) [Entitic mass] 30.8 pg 27.0-32.0 [facility] Mean corpuscular hemoglobin concentration (MCHC) determinationOrdered By: Issa Hansen on 07-09-2024 MCHC (RBC) [Mass/Vol] 33.0 g/dL 32-36 [facility] Mean platelet volume determi nationOrdered By: Issa Hansen on 07-09-2024 Platelet mean volume (Bld) [Entitic vol] 10.6 fL 6.2-12.0 [facility] Microscopic analysis of urin e for red blood cells (RBC)Ordered By: Issa Hansen on 07-09-2024 Microscopic analysis of urine for red blood cells (RBC) 0-5 SEEN /hpf 0-5 [facility] Monocyte percentageOrdered B y: Issa Hansen on 07-09-2024 Monocytes/100 WBC (Bld) 9.1 % 0-10 [facility] Mucus LM Ql (Urine sed)Order ed By: Issa Hansen on 07-09-2024 Mucus Ql (Urine sed) 0 SEEN /hpf [facility] Neutrophil percentageOrdered By: Issa Hansen on 07-09-2024 Neutrophils/100 WBC (Bld) 57.4 % 47-70 [facility] Nitrite Test strip Ql (U)Ord ered By: Issa Hansen on 07-09-2024 Nitrite Ql (U) Negative Negative [facility] Nucleated red blood cell per centageOrdered By: Issa Hansen on 07-09-2024 Nucleated RBC/100 WBC (Bld) [Ratio] 0 % 0-5 [facility] Platelet countOrdered By: Rhea Hansen on 07-09-2024 Platelets (Bld) [#/Vol] 267 10*3/uL 150-450 [facility] Potassium measurement (mass/ volume)Ordered By: Issa Hansen on 07-09-2024 Potassium (Unsp spec) [Mass/Vol] 3.9 mmol/L 3.3-5.1 [facility] Protein Test strip Ql (U)Ord ered By: Issa Hansen on 07-09-2024 Protein Ql (U) 15 mg/dl High Negative [facility] RBC Auto (Bld) [#/Vol]Ordere d By: Issa Hansen on 07-09-2024 RBC (Bld) [#/Vol] 4.26 10*6/uL 4.2-5.4 [facility] Screening total cholesterol/ high density lipoprotein (HDL) cholesterol ratioOrdered By: Isas Hansen on 07-09-2024 Cholesterol.total/Naty sterol in HDL [Mass ratio] 2.91 {ratio} [facility] Serum creatinine measurement (mass/volume)Ordered By: Issa Hansen on 07-09-2024 Creatinine [Mass/Vol] 0.73 mg/dL 0.70-1.20 [facility] Serum globulin measurementOr dered By: Issa Hansen on 07-09-2024 Globulin (S) [Mass/Vol] 3.6 g/dL 2.2-4.2 [facility] Serum glucose measurement (m ass/volume)Ordered By: Issa Hansen on 07-09-2024 Glucose [Mass/Vol] 75 mg/dL 70-[address] [facility] Serum or plasma alanine lopez otransferase (ALT) measurementOrdered By: Issa Hansen on 07-09-2024 ALT [Catalytic activity/Vol] 104 U/L High <35 [facility] Serum or plasma albumin francesco urement (mass/volume)Ordered By: Issa Hansen on 07-09-2024 Albumin [Mass/Vol] 4.5 g/dL 3.5-5.[address] [facility] Serum or plasma albumin/glob ulin mass ratioOrdered By: Issa Hansen on 07-09-2024 Albumin/Globulin [Mass ratio] 1.2 {ratio} 0.9-2.4 [facility] Serum or plasma alkaline ralph sphatase measurementOrdered By: Issa Hansen on 07-09-2024 ALP [Catalytic activity/Vol] 120 U/L High 35-104 [facility] Serum or plasma calcium francesco urement (mass/volume)Ordered By: Issa Hansen on 07-09-2024 Calcium [Mass/Vol] 9.7 mg/dL 7.6-11.[address] [facility] Serum or plasma cholesterol in HDL measurement (mass/volume)Ordered By: Issa Hansen on 07-09-2024 Cholesterol in HDL [Mass/Vol] 65 mg/dL >40 [facility] Comment on above: National Cholesterol Education Program (NCEP) guidelines:<40 mg/dL: Low HDL-cholesterol (major risk factor for CHD)>= 60 mg/dL: High HDL-cholesterol (negative risk factor for CHD)HDL-cholesterol is affected by a number of factors, e.g. smoking, exercise, hormones, sex and age. Serum or plasma cholesterol measurement (mass/volume)Ordered By: Issa Hansen on 07-09-2024 Cholesterol [Mass/Vol] 190 mg/dL <201 [facility] Comment on above: Cholesterol level, D esirable <200 mg/dLBorderline high cholesterol 200-239 mg/dLHigh cholesterol >=240 mg/dLRecommendations of the NCEP Adult Treatment Panel for the following risk-cutoff thresholds for the [place] Citizen [place] population. Serum or plasma urea nitroge n measurement (mass/volume)Ordered By: Issa Hansen on 07-09-2024 Urea nitrogen [Mass/Vol] 10 mg/dL 4-19 [facility] Sodium levelOrdered By: Issa Hansen on 07-09-2024 Sodium [Moles/Vol] 139 mmol/L 133-[address] [facility] Squamous epithelial cells de tection in urine sediment by light microscopyOrdered By: Issa Hansen on 07-09-2024 Epithelial cells.squamous LM Ql (Urine sed) 0-5 SEEN /hpf 5-10 [facility] TSH DL <= 0.005 mIU/L QnOrde red By: Issa Hansen on 07-09-2024 TSH Qn 0.973 uIU/mL 0.300-4.200 [facility] Thyroid Stim Hormone (TSH)on 07-09-2024 TSH 0.973 uIU/mL Normal 0.300-4.200 [facility] Comment on above: Order Comment: Order Date: 07/09/24 Order Info: [id number] - CMP Order Info: [id number] - LIPID Order Info: [id number] - TSH Performed By: #### L 500.4050, L501.9520, L500.4100, L100.0100 #### [facility] [address] [place], [place], [id number] Total proteinOrdered By: Joce Hansen on 07-09-2024 Protein [Mass/Vol] 8.0 g/dL 5.9-8.[address] [facility] Triglycerides measurementOrd ered By: Issa Hansen on 07-09-2024 Triglyceride [Mass/Vol] 110 mg/dL <199 [facility] Comment on above: The drugs N-Acetylcy steine and Metamizole may falsely depress this assay. Normal range: <150 mg/dLBorderline High: 150-199 mg/dLHigh: 200-499 mg/dLVery High: >500 mg/dL Urinalysis, Completeon 07-09 EPI,SQUAMOUS 0-5 SEEN Normal 5-10 [facility] Comment on above: Order Comment: Urine , Random Performed By: #### L 3890.6301, L400.0001, L3890.6102 #### [facility] [address] [place], [place], [id number] RBC 0-5 SEEN Normal 0-5 [facility] Comment on above: Order Comment: Urine , Random Performed By: #### L 3890.6301, L400.0001, L3890.6102 #### [facility] [address] [place], [address] WBC 0-5 SEEN Normal 0-5 [facility] Comment on above: Order Comment: Urine , Random Performed By: #### L 3890.6301, L400.0001, L3890.6102 #### [facility] [address] [place], [address] BACTERIA 0 SEEN Normal None Seen [facility] Comment on above: Order Comment: Urine , Random Performed By: #### L 3890.6301, L400.0001, L3890.6102 #### [facility] [address] [place], [address] Mucus Ql (Urine sed) 0 SEEN Normal [facility] Comment on above: Order Comment: Urine , Random Performed By: #### L 3890.6301, L400.0001, L3890.6102 #### [facility] [address] [place], [address] Urine clarityOrdered By: Joce Hansen on 07-09-2024 Clarity (U) Clear Clear [facility] Urine color determinationOrd ered By: Issa Hansen on 07-09-2024 Color (U) Straw Yellow [facility] Urine glucose detectionOrder ed By: Issa Hansen on 07-09-2024 Glucose Ql (U) Normal mg/dl Normal [facility] Urine leukocyte esterase det ection by dipstickOrdered By: Issa Hansen on 07-09-2024 Leukocyte esterase Test strip Ql (U) 25 /ul High Negative [facility] Urine pHOrdered By: Issa gant on 07-09-2024 pH (U) 6.0 [pH] 5.0 - 8.0 [facility] Urine sediment bacteria coun t by microscopy (number/high power field)Ordered By: Issa Hansen on 07-09-2024 Bacteria LM.HPF (Urine sed) [#/Area] 0 /[HPF] None Seen [facility] Urine specific gravity measu rementOrdered By: Issa Hansen on 07-09-2024 Specific gravity (U) [Rel density] 1.015 1.002-1.030 [facility] Urine urobilinogen measureme ntOrdered By: Issa Hansen on 07-09-2024 Urobilinogen Ql (U) Normal mg/dl Normal [facility] White blood cell (WBC) count Ordered By: Issa Hansen on 07-09-2024 WBC (Bld) [#/Vol] 8.8 10*3/uL 4.4-11.[address] [facility] White blood cell countOrdere d By: Issa Hansen on 07-09-2024 White blood cell count 0-5 SEEN /hpf 0-5 [facility] Cervical or vagninal specime n microscopic examination by cytology stain (reported ason 07-13-2021 Cytology report Cyto stain Doc (Cvx/Vag) Comment [facility] Work Phone: Comment on above: The Pap smear is a s creening test designed to aid in thedetection of premalignant and malignant conditions of theuterine cervix. It is not a diagnostic procedure andshould not be used as the sole means of detecting cervicalcancer. Both false-positive and false-negative reports dooccur. Detection in cervical specim en of any of human papilloma virus (HPV) 16, 18, 31, 33,on 07-13-2021 HPV 16+18+31+33+35+39+45+51 +52+56+58+59+66+68 DNA Probe+sig amp Ql (Cvx) Negative Negative [facility] Work Phone: Comment on above: This nucleic acid am plification test detects fourteen high-risk HPV types (16,18,31,33,35,39,45,51,52,56,58,59,66,68)without differentiation.Performed at: [address] [id number] Director: Talisha Navarro MD, Phone: [phone] at: =[address] [id number] Director: Talisha Navarro MD, Phone: [phone] Laboratory - Cytologyon 06-19 Senior Network Architect Cyto stain Nom (Cvx/Vag) [ID] Comment [facility] Work Phone: Comment on above: Isabelle Roberts ytotechnologist (ASCP) Laboratory - Miscellaneous t estson 07-13-2021 Service comment (Unsp spec) [Interp] Comment [facility] Work Phone: Comment on above: This liquid based Th inPrep(R) pap test was screened withthe use of an image guided system. Service comment (Unsp spec) [Interp] . [facility] Work Phone: No Panel Informationon 07-13 Pathology report final diagnosis Narrative Comment [facility] Work Phone: Comment on above: NEGATIVE FOR INTRAEP ITHELIAL LESION OR MALIGNANCY.CELLULAR CHANGES ASSOCIATED WITH INFLAMMATION ARE PRESENT. PROGRESSon 07-13-2018 Protein mass conc HNO ID: [id number] Author: Verónica Cruz OT Service: ? Author Type: Occupational Therapist Type: Progress Notes Filed: 07/13/2018 8:15 AM Note Text: 07/13/2018 [facility] OCCUPATIONAL THERAPY DISCONTINUANCE OF CARE Plan of Care Period: Start of Care Date: 04/03/18 Last Visit Date: 04/02/18 Therapy Program: Patient did not return for follow up care as planned. Please refer to last visit note for interventions provided for this episode of care. Assessment: Unable to formally assess goal achievement due to non-compliance with therapy plan of care. Reason for Discontinuation of Care: Patient has not returned to therapy or scheduled additional follow-up appointments. Verónica Cruz OTR/L,CHT [facility] CR Hand Complete 3+ Views Le fton 05-22-2018 CR Hand Complete 3+ Views Left Patient Name: MARU BRAY Diagnostic Radiology Exam Date/Time 05/21/2018 13:27:50 EST Exam CR Hand Complete 3+ Views Left Ordering Physician SAMUEL BERNAL Accession Number [id number] CPT4 Codes 07672 () Reason For Exam fx digits3-5 Report LEFT HAND THREE VIEWS CLINICAL INDICATION: fx digits3-5 TECHNIQUE: Three views of the left hand. COMPARISON: 03/27/2018 intraoperative images FINDINGS: Oblique fracture through the tuft of the distal phalanx of digit 3 not significantly changed. There is a pin traversing the distal aspect of the middle phalanx and the distal phalanx of digit 4. Previously there were 2 pins in this area. Alignment is anatomic. Healing is incomplete regarding the oblique fracture of the distal aspect of the middle phalanx, and the distal phalanx fracture. There are 2 pins traversing the fifth digit, one longitudinally traversing the middle and distal phalanges, second traversing the displaced fracture of the distal aspect of the middle phalanx. Healing is incomplete, and alignment is similar to the previous study. IMPRESSION: 1. Incompletely healed fractures of digits 3, 4, and 5. Report Dictated on Final Dictating Physician: MD MEYER JOHN R Signed Date and Time: 05/22/2018 2:06 pm Signed by: MD MEYER JOHN R Transcribed Date and Time: 05/22/2018 2:07 Normal [facility] Op Noteon 04-16-2018 Op Note PATIENT: MARU BRAY ADMISSION DATE: 03/27/2018 SURGERY DATE: 03/27/2018 DATE OF : 1975 AGE: 42 ADMITTING PHYSICIAN: Samuel Bernal MD ATTENDING PHYSICIAN: Samuel Bernal MD DICTATING PHYSICIAN: Samuel Bernal MD OPERATIVE RECORD PROCEDURE: 1. EXPLORATION, IRRIGATION, AND DEBRIDEMENT OF CRUSH INJURY DIGITS 3 THROUGH 5, LEFT HAND (DOWN TO AND INCLUDING BONE TISSUE). 2. OPEN REDUCTION AND INTERNAL FIXATION, COMMINUTED MIDDLE PHALANGEAL INTRAARTICULAR DIP JOINT FRACTURE, LEFT SMALL FINGER (0.035, 0.028 K-WIRES X1 EACH). 3. CLOSED REDUCTION AND K-WIRE FIXATION, MIDDLE PHALANX FRACTURE OF THE LEFT RING FINGER (0.035 K-WIRES X2). 4. NAILBED REPAIR, LEFT RING FINGER. 5. SIMPLE REPAIR LACERATIONS, DIGITS 4 AND 5, LEFT HAND (6 CM TOTAL). PREOPERATIVE DIAGNOSIS: Crush injury, digits 3 through 5, left hand. POSTOPERATIVE DIAGNOSIS: Crush injury, digits 3 through 5, left hand. ANESTHESIA: Region block and IV sedation. COMPLICATIONS: None. INDICATIONS: This is a evippk-fqbb-jctz-old female, who sustained the above-mentioned injury while working with a wood splitter. She had sustained simple laceration at the tip of the middle finger, but more extensive injuries to the ring and small fingers, respective repair. Surgical intervention was therefore recommended. She was brought to the operating room at this time for the above-mentioned procedure. DESCRIPTION OF PROCEDURE: After transport by cart into the operating room, the patient was placed in supine position on the operating room table. Following successful placement of regional block anesthesia and IV sedation, the area in question was prepped and draped in usual sterile fashion using Betadine solution. All devitalized tissue was debrided sharply. The debridement was carried down to the level of bone tissue. Using intraoperative mini-fluoroscopy, anatomic reduction of the left small finger, comminuted intraarticular DIP fracture was achieved. Fixation was secured with 0.028 and 0.035 K-wires each, respectively. Closed reduction and K-wire fixation of the displaced middle phalangeal fracture of the left ring finger was also performed and fixation achieved with 0.035 K-wires x2 repair was also required at the proximal portion of the nailbed of the left ring finger. This was performed with interrupted 5-0 chromic sutures. Finally, simple 4 and 5 left hand (6 cm total) was performed. A dry sterile protective dressing incorporating a fiberglass splint was then applied. Sponge and needle counts were correct. Blood loss was minimal. The patient tolerated the procedure well and was transported to the recovery room in stable condition. Samuel Bernal MD DOD:04/16/2018 MAXIMUS/khushboo DOT:04/17/2018 12:10 P Job Number: [id number] Document Number: [id number] [facility] CNTHERAPYon 04-03-2018 CNTHERAPY OT/PT/Speech Visit (AKOTB) -------- MARU BRAY ([id number]) 1975 F Date Time Provider Department 04/03/18 10:45 AM VERÓNICA CRUZ (OT) JASON Date Time Provider Department Center 04/03/2018 10:45 AM [id number], ANAS*AKMICHAELB AG [facility] Reason for Visit: OT EVAL [748] OT Discharge [750] Reason For Visit History Recorded Primary Visit Diagnosis:Pain in finger of left hand [M79.645] Other Visit Diagnoses:Open displaced fracture of middle phalanx of left little finger, initial encounter [S62.627B] Open displaced fracture of middle phalanx of [...] 1 application to affect* LEVONORGESTREL 20 MCG/24 HOUR* Inserted in office Progress Notes: OSCAR Story/Riana,CHT, OT 04/03/2018 1:59 PM Signed Episode Visit Count: 1 Therapist That Will Oversee The Plan Of Care: Stacie Cruz Start of Care Date: 04/03/18 Onset Date: 03/24/18 Patient Identified by Name and Date of : Yes [facility]IL[facility]ATION [facility] SPORTS THERAPY OCCUPATIONAL THERAPY EVALUATION PLAN OF CARE: Assessment: Maru Bray presents with the chief complaint of open displaced fracture of the middle phalanx of the left ring and middle fingers.. She presents with impairments of pain, edema. 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 Patient will report a good understanding of edema control techniques Goal Sage A=achieved PA=partially achieved NA=not achieved NT=not tested Planned Interventions, Frequency, and Duration: Current Frequency: 1x every other week Duration: 12 weeks Total Number of Visits Planned: 6 Planned Treatment Interventions: Custom orthosis fabrication;Therapeutic exercise;Therapeutic activities;Manual therapy;Self-senior living management;Modalities;Pa tient/Family/Caregiver EducationFluidotherapy PLAN FOR NEXT VISIT: Patient to [...] that finger as well. Functional Limitations: lifting;heavy exertion;cleaning;skyler whitlock Prior Level of Function: Independent without limitations Intake Information: Prescription present Previous Treatment: Surgery? 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 Pain Score: 03/29 Pain [...] Dexterity/Coordination: Not Tested Education: Education Learning Preferences: Demonstration;Explanatio n Barriers: None Learning/educational needs: Procedure / Surgery;Plan of Care;Wound;Home exercise program Education Provided: Yes, see treatment interventions for education provided Education Provided To: Patient (mother) Education Mode/Type: Demonstration;Literature /Printed Materials;Explanation/Di scussion Response to Education/Teach Back: States/Identifies TREATMENT: Evaluation Self-Fpc Management: 1: Diagnosis / Plan of Care/ [...] Billing: Jasvir: Evaluation - Low Complexity ( 49728) Self Care / Home Management (57291): 1:1 time: 10 minutes (1 unit: 8-22 mins) Orthosis: Fabrication time for custom splint: 20 minutes Custom: L3913 HFO custom w/o joints (oppon/ hand gillespie/ hand trigger/ other) Total time: 50 minutes Verónica Cruz, OTR/NILES Mayers OTR/L, CHT, OT 07/13/2018 8:15 AM Signed 07/13/2018 REHABILITATION AND SPORTS THERAPY OCCUPATIONAL THERAPY DISCONTINUANCE OF CARE Plan of Care Period: Start of Care Date: 04/03/18 Last Visit Date: 04/02/18 Therapy Program: Patient did not return for follow up care as planned. Please refer to last visit note for interventions provided for this episode of care. Assessment: Unable to formally assess goal achievement due to non-compliance with therapy plan of care. Reason for Discontinuation of Care: Patient has not returned to therapy or scheduled additional follow-up appointments. 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 3. [...] Occupational Therapy Hand and Upper Extremity Center [facility] [address] [place], [place] [id number] ext [phone] Maru Bray 04/03/2018 Therapist: Stacie Cruz CARE OF [...] please call the office. THERAPIST: Stacie Cruz [facility] PROGRESSon 04-03-2018 Protein mass conc HNO ID: [id number] Author: Verónica (Ot) MICHAEL Cruz Service: (none) Author Type: Occupational Therapist Type: Progress Notes Filed: 04/03/2018 1:59 PM Note Text: Episode Visit Count: 1 Therapist That Will Oversee The Plan Of Care: Stacie Cruz Start of Care Date: 04/03/18 Onset Date: 03/24/18 Patient Identified by Name and Date of : Yes [facility]ER[facility] OCCUPATIONAL THERAPY EVALUATION PLAN OF CARE: Assessment: Maru Bray presents with the chief complaint of open displaced fracture of the middle phalanx of the left ring and middle fingers.. She presents with impairments of pain, edema. 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 Patient will report a good understanding of edema control techniques Goal Sage A=achieved PA=partially achieved NA=not achieved NT=not tested Planned Interventions, Frequency, and Duration: Current Frequency: 1x every other week Duration: 12 weeks Total Number of Visits Planned: 6 Planned Treatment Interventions: Custom orthosis fabrication;Therapeutic exercise;Therapeutic activities;Manual therapy;Self-senior living management;Modalities;Pa tient/Family/Caregiver EducationFluidotherapy PLAN FOR NEXT VISIT: Patient to [...] that finger as well. Functional Limitations: lifting;heavy exertion;cleaning;drivin g Prior Level of Function: Independent without limitations Intake Information: Prescription present Previous Treatment: Surgery? 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 Pain Score: 03/29 Pain Location: Finger [...] Dexterity/Coordination: Not Tested Education: Education Learning Preferences: Demonstration;Explanatio n Barriers: None Learning/educational needs: Procedure / Surgery;Plan of Care;Wound;Home exercise program Education Provided: Yes, see treatment interventions for education provided Education Provided To: Patient (mother) Education Mode/Type: Demonstration;Literature /Printed Materials;Explanation/Di scussion Response to Education/Teach Back: States/Identifies TREATMENT: Evaluation Self-Fpc Management: 1: Diagnosis / Plan of Care/ [...] as wear and care of orthosis. Billing: [place]: Evaluation - Low Complexity ( 79518) Self Care / Home Management (42580): 1:1 time: 10 minutes (1 unit: 8-22 mins) Orthosis: Fabrication time for custom splint: 20 minutes Custom: L3913 HFO custom w/o joints (oppon/ hand gillespie/ hand trigger/ other) Total time: 50 minutes Verónica Cruz, OTR/L,CHT Normal [facility] HCG,Urine Qualon 03-27-2018 HCG.beta subunit ( test) Ql (U) Negative Normal Negative [email or web address] Comment on above: Result Comment: Preg roni is the most common reason for HCG in urine, although choriocarcinoma, hydatidiform mole, and certain nontropho- blastic malignancies also result in detectable urinary HCG levels. Sensitivity = 20mIU/mL. Performed By: #### H CGUR #### [facility] [address] [place] [address] HAND 3V PA/LAT/OBL RIGHTon 0 03-24-2018 HAND 3V PA/LAT/OBL RIGHT Performed at [facility] APPROVED BY: Mansoor Llamas MD EXAM TITLE: HAND 3V PA/LAT/OBL left DATE: 03/24/2018 16:11 INDICATION: Left hand was caught in a wood splitter COMPARISON: None. FINDINGS: There are comminuted appearing fractures involving the distal phalanges of the third and fourth digits. Also, there are comminuted fractures involving the middle phalanges of the fourth and fifth digits. No dislocation is seen. Soft tissue swelling is noted near the fractures. IMPRESSION: Multiple fractures as discussed. Normal [facility] Vital Signs Date Time Vital Sign Value Performing Clinician Faci lity 09-10-2024 11:11-0400 Body height 170.[address] Issa Hansen MD Work Phone: [facility] 09-10-2024 11:11-0400 Body mass index (BMI) [Ratio] 31.8 kg/m2 Dr. Issa Hansen MD Work Phone: [facility] 09-10-2024 11:11-0400 Body weight 92.[address] Issa Hansen MD Work Phone: [facility] 09-10-2024 11:11-0400 Diastolic blood pressure 75 mm[Hg] Dr. Issa Hansen MD Work Phone: [facility] 09-10-2024 11:11-0400 Systolic blood pressure 125 mm[Hg] Dr. Issa Hansen MD Work Phone: [facility] 07-25-2022 11:58-0400 Body height 170.18 cm No Primary Care Physician [facility] 07-25-2022 11:54-0400 Body mass index (BMI) [Ratio] 30.1 kg/m2 No Primary Care Physician [facility] 07-25-2022 11:54-0400 Body weight 87.2 kg No Primary Care Physician [facility] 07-25-2022 11:54-0400 Diastolic blood pressure 77 mm[Hg] No Primary Care Physician [facility] 07-25-2022 11:54-0400 Systolic blood pressure 118 mm[Hg] No Primary Care Physician [facility] 07-13-2021 08:28-0400 Body height 170.18 cm No Primary Care Physician [facility] Work Phone: 07-13-2021 08:28-0400 Body mass index (BMI) [Ratio] 29.9 kg/m2 No Primary Care Physician [facility] Work Phone: 07-13-2021 08:28-0400 Body weight 86.63 kg No Primary Care Physician [facility] Work Phone: 07-13-2021 08:28-0400 Diastolic blood pressure 70 mm[Hg] No Primary Care Physician [facility] Work Phone: 07-13-2021 08:28-0400 Systolic blood pressure 140 mm[Hg] No Primary Care Physician [facility] Work Phone: Encounters Encounter Date Encounter Type Care Provider Facility Start: 09-10-2024 Encounter for gynecological examination (general) (routine) without abnormal findings Dalila Enriquez [facility] Start: 09-10-2024 End: 09-10-[address] Dalila Enriquez MD [facility] Start: 09-10-2024 End: 09-10-[address] Dalila Enriquez MD -[facility] Work Phone: Start: 09-10-2024 End: 09-10-[address] Issa Hansen MD Work Phone: [facility] Work Phone: Start: 07-12-2024 Encounter for genera l adult medical examination without abnormal findings Issa Hansen [facility] Start: 07-11-2024 End: 07-11-[address] Issa Hansen MD -[facility] Start: 07-11-2024 End: 07-11-2024 ambulatory Issa Hansen Facility:[facility] Start: 07-09-2024 End: 07-09-[address] Issa Hansen MD -[facility] Start: 07-09-2024 End: 07-09-2024 ambulatory Issa Hansen Facility:[facility] Start: 07-25-2022 End: 07-25-2022 ambulatory No Primary Care Physician [facility] Work Phone: Start: 07-25-2022 End: 07-25-2022 Patient encounter procedure No Primary Care Physician [facility] Start: 07-13-2021 End: 07-13-2021 Patient encounter procedure No Primary Care Physician [facility] Start: 08-30-2018 End: 09-03-2018 ambulatory [facility] Start: 05-21-2018 [facility] Start: 04-03-2018 End: 04-03-2018 Patient encounter procedure VERÓNICA (OT) JAYANT Facility:[facility] Start: 03-27-2018 Patient encounter procedure Samuel Bernal [facility] Start: 03-24-2018 End: 03-24-2018 Emergency department patient visit VIRI SALINAS [facility] Procedures Date Procedure Procedure Detail Performing Clinician Start: 07-09-2024 Urnls dip stick/tabl et reagent auto microscopy Dr. Issa Hansen MD Work Phone: Start: 07-09-2024 Hepatitis C antibody measurement Dr. Issa Hansen MD Work Phone: Comment on above: Reactive: Presumptiv e evidence of antibodies to HCV. Follow CDC recommendations for supplemental testing.Non-Reactive: Antibodies to HCV were not detected; does not exclude the possibility of exposure to HCVReactive Results are presumptive evidence of antibodies to HCV. Follow CDC recommendations for supplemental testing.Order confirmation testing: HCV Quant by PCR testing - HCVPCR #[id number] Non Reactive: < 0.8 Equivocal: >/= 0.8 to < 1.0 Reactive: >/= 1.0The CDC requires that a reactive/equivocal HCV antibody result be sent out for confirmation. HCV Quant by PCR testing. Start: 07-25-2022 Screening mammography N o Primary Care Physician Start: 07-13-2021 Screening mammography N o Primary Care Physician Plan of Treatment Date Care Activity Detail Author Start: 09-10-2024 MG Breast - bilatera l Screening [facility] Start: 09-10-2024 Screening mammography SCRN ELIAS M (CAD)W/ILDEFONSO BILAT [facility] Payers Date Payer Category Payer Self-pay [id number] 2024 Unknown [id number] 1975 Unknown [id number] 2.16.8 [id number] 1975 Unknown [id number] 2.16.8 [id number] 1975 Unknown [id number] 2.16.8 [id number] Unknown [id number] Unknown Unknown [id number] 2.16.8 [id number] Unknown [id number] 2.16.8 [id number] Unknown [id number] 2.16.8 [id number] Unknown [id number] 2.16.8 [id number] Social History Date Type Detail Facility Start: 07-13-2021 End: 07-25-2022 Tobacco smoking status ILIS Unknown if ever smoked [facility] Start: 1975 Sex Assigned At Female [facility] Start: 07-25-2022 Tobacco smoking stat us ILIS Never smoked tobacco (finding) [facility] Progress note 09-10-2024 Note Date & Type Note Facility 09-10-2024 Progress note [facility] Clinical Note 07-13-2021 Note Date & Type Note Facility 07-13-2021 Note [facility] Work Phone: Pap Smear Specimen Adequacy July 13, 2021 10:38am Comment Satisfactory for evaluation. Endocervical and/or squamous metaplasticcells (endocervical component) are present. Comment on above: Satisfactory for enma luation. Endocervical and/or squamous metaplasticcells (endocervical component) are present. Evaluation note Note Date & Type Note Facility Evaluation note No assessment information availa ble [facility] Work Phone: Evaluation note Note Date & Type Note Facility Evaluation note Diagnosis Onset Date [id number] noneactive [facility] Work Phone: Evaluation note Note Date & Type Note Facility Evaluation note Diagnosis Onset Date Resolution Encounter for routine gynecological examination noneactive September 10, 2024 10:45am [facility] Work Phone: Progress note Note Date & Type Note Facility Progress note Note Date/Time September 10, 2024 11:38am [facility] [address] [place] [address], [address] [place] [address] OFFICE VISIT Date of Service: 09/10/24 MR#: [id number] Acct: [id number] Name: MARU BRAY Rep #: [id number] : 1975 Provider: Dr. 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 Is patient in pain?: No Allergies azithromycin Adverse Reaction (Unknown, Verified 09/10/24 11:08) rash Medications ?Medication ?Instructions ?Recorded ?Confirmed ?Type levonorgestrel 20.4 mcg/24 hr (up 1 device intrauterin e ONCE 08/26/19 09/10/24 History to 8 yrs) 52 mg intrauterine device (Liletta) Is last menstrual period known: No Post menopausal: No Patient : No : No [facility] Medical History Mirena IUD placed on 08/01 Surgical History History of cholecystectomy History of tonsillectomy and adenoidectomy Hx of removal of ovary Social History number of children: 2 current occupational status: employed current occupation: [employer] Smoking Status: Never smoker alcohol intake: never substance use type: does not use seatbelt use: always do you feel safe at home: Yes additional social history: [place] History 2 Elective abortions Hx Para 2 Spontaneous abortions Hx # Term Pregnancies Ectopic pregnancies Hx # Pregnancies Multiple births # of living children 2 Past Pregnancies Del. Date Name GA/Weeks Outcome Route Bth Weight Infant Gen Labor Lgth Anesthesia Del Locatn Provider FOB Unknown [id number] Unknown [place] 2004 HPI Encounter for routine gynecological examination Details: MARU BRAY is a 48 year old who presents for annual exam. Last PAP: 07/13/2021 - normal History of abnormal PAP: Last mammogram: this morning History of abnormal mammogram: Colon cancer screening: Other preventative health care screenings: PCP [place] Female Reproductive History Last Menstrual Period: 08/03/23 Cycle Length: >35 Questions: metorrhagia: No, sexually active: Yes, dyspareunia: No and PCB: No Menopausal Symptoms: Yes hot flashes, Yes night sweats, No weight change, No mood changes, No difficulty concentrating, No sleep problems and No change in libido ROS Const Constitutional: Reports as per HPI and night sweats; Denies fatigue, increased appetite, poor appetite, weight gain or weight loss Cardio Card: Denies chest pain Resp Resp: Denies cough or dyspnea GI GI: Reports as per HPI; Denies abdominal pain, bloating, constipation, nausea or vomiting : Reports as per HPI, hot flashes and other; Denies difficulty voiding, dysuria, hematuria, nipple discharge, pelvic pain, prolapse symptoms, urinary frequency, urinary incontinence, urinary urgency, vaginal discharge, vaginal dryness, vaginal odor or vaginal pruritus Skin Skin/Breast: Denies changing lesions, breast mass, breast pain, breast skin changes or nipple discharge Psych Psych: Denies anxiety, change in libido, depression or difficulty concentrating Exam Const General: cooperative, healthy appearing, comfortable, no acute distress, well developed and well groomed [facility] Head: normal to inspection and normocephalic Ears: hearing grossly normal bilaterally and external ears normal Nose: external nose normal Face and sinus: normal facial exam Neck Neck: normal visual inspection, full ROM and no lymphadenopathy Thyroid: thyroid normal Chest Chest palpation & inspection: normal inspection of the chest Breast inspection: normal inspection of the breasts and normal inspection of theaxillae Breast palpation: normal palpation of the breasts, normal palpation of the axillae and no axillary lymphadenopathy Resp Effort & Inspection: normal respiratory effort GI Inspection: normal to inspection and non-distended Palpation: soft, no hepatosplenomegaly and no guarding General: bladder normal to palpation External Female Exam: normal external appearance, normal appearance of the urethra and no lesions Urethra: normal appearance of the urethra and normal palpation Speculum Exam - Vagina: normal appearance of the vagina (iud strings seen) and normal vaginal discharge Speculum Exam - Cervix: normal appearance of the cervix, no cervical discharge, no lesions and nontender Bimanual Exam- Vagina & Uterus: normal bimanual exam, uterine size normal, bladder normal to palpation, No tender, uterine mobility normal, consistency normal, non-tender and no cervical motion tenderness Bimanual Exam- Adnexa, other: normal adnexae, no masses and non-tender Skin General: no rashes or lesions noted Neuro General: patient alert, moves all extremities and no focal motor deficits Extrem General: normal to inspection and no pedal edema Psych Appearance: grossly normal Mental Status: mental status grossly normal Affect: normal affect Speech and Movement: speech and movement normal Attitude: cooperative Coding Level of Care Code Off vis,est,prev 40-64yrs Diagnoses Encounter for gynecological examination without abnormal finding Z01.419 Gynecological examination findings: abnormal findings ABSENT Assessment and Plan Assessment and Plan (1) Encounter for routine gynecological examination: Qualifiers: Gynecological examination findings: abnormal findings ABSENT Qualified Code(s): Z01.419 - Encounter for gynecological examination (general) (routine) without abnormal findings Orders: Orders SCRN MAMM (CAD)W/ILDEFONSO BILAT Today Z12.31 - Encounter for screening mammogram for malignant neoplasm of breast Plan Cervical cancer screening: pap hpv up to date Breast cancer screening: mamm other health maintenance [...] health maintenance exam or sooner if needed. 09/10/24 [id number] <Electronically signed by Dalila larry MD> Date _ Dalila Enriquez MD Cosigner Signature: Date (if applicable) CC: ~ [facility] Work Phone: Reason for referral (narrative) Note Date & Type Note Facility Reason for referral (narrative) No reason for referral information available [facility] Work Phone: Summary Purpose Family History No Family History Records FoundNo Family History Records FoundNo Family History Records FoundNo Family History Records FoundNo Family History Records Found Advance Directives No Advanced Directives Records FoundNo Advanced Directives Records FoundNo Advanced Directives Records FoundNo Advanced Directives Records FoundNo Advanced Directives Records Found Chief Complaint and Reason for Visit Chief 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) Chief 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) , r/s from 07/14 Reason for Visit [id number] Chief Complaint Admit Date screening for breast cancer September 10 10:24am 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) September 10, 2024 10:4 5am Reason for Visit Admit Date Encounter for routine gynecological exam ination September 10, 2024 10:45am Additional Source Comments INFORMATION SOURCE (unrecogn ized section and content) DATE CREATED [facility] DATE CREATED AUTHOR AUTHOR'S ORGANIZ ATION 06/01/2018 [facility] DATE CREATED AUTHOR AUTHOR'S ORGANIZ ATION 07/15/2018 [facility] DATE CREATED AUTHOR AUTHOR'S ORGANIZ ATION 08/20/2023 [facility] DATE CREATED AUTHOR AUTHOR'S ORGANIZ ATION 09/10/2024 [facility] Goals (unrecognized section and content) Goals may be documented in a n alternate sectionGoals may be documented in an alternate sectionGoals may be documented in an alternate section Care Teams (unrecognized sec tion and content) Team Status: Active Member Role Status Dates No Primary Care Physician Family Provider Active No Primary Care Physician Primary Care Provider Active Team Status: Inactive Member Role Status Dates No Primary Care Physician Primary Care Provider, Refer ring Provider Active Dr. Dalila Enriquez MD Attending Provider Active Team Status: Inactive Member Role Status Dates No Primary Care Physician Primary Care Provider Active Dr. Dalila Enriquez MD Attending Provider, Referr ing Provider Active Team Status: Active Member Role Status Dates Dr. Issa Hansen MD Primary Care Provider Active Team Status: Inactive Member Role Status Dates Dr. Issa Hansen MD Primary Care Provider Active Start: July 09, 2024 End: July 09, 2024 Dr. Issa Hansen MD Attending Provider Active Start: July 09, 2024 End: July 09, 2024 Dr. Issa Hansen MD Referring Provider Active Start: July 09, 2024 End: July 09, 2024 Team Status: Inactive Member Role Status Dates Dr. Issa Hansen MD Primary Care Provider Active Start: July 11, 2024 End: July 11, 2024 Dr. Issa Hansen MD Attending Provider Active Start: July 11, 2024 End: July 11, 2024 Dr. Issa Hansen MD Referring Provider Active Start: July 11, 2024 End: July 11, 2024 Team Status: Active Member Role Status Dates Dr. Dalila Enriquez MD Attending Provider Active Start: September 10, 2024 Dr. Dalila Enriquez MD Referring Provider Active Start: September 10, 2024 Dr. Issa Hansen MD Primary Care Provider Active Start: September 10, 2024 Team Status: Inactive Member Role Status Dates No Primary Care Physician Referring Provider Active Start: September 10, 2024 End: September 10, 2024 Dr. Dalila Enriquez MD Attending Provider Active Start: September 10, 2024 End: September 10, 2024 Dr. Issa Hansen MD Primary Care Provider Active Start: September 10, 2024 End: September 10, 2024 FOR RECORDS PERTAINING TO PATIENTS WHO ARE OR HAVE BEEN ENROLLED IN A CHEMICAL DEPENDENCY/SUBSTANCEABUSE PROGRAM, SOME INFORMATION MAY BE OMITTED. This clinical summary was aggregated from multiple sources. Caution should be exercised in using it in the provision of clinical care. This summary normalizes information from multiple sources, and as a consequence, information in this document may materially change the coding, format and clinical context of patient data. In addition, data may be omitted in some cases. CLINICAL DECISIONS SHOULD BE BASED ON THE PRIMARY CLINICAL RECORDS. [facility] [employer] provides no warranty or guarantee of the accuracy or completeness of information in this document.
== END | disposition home or self-care (01) ==
LOC: OPBI 10:26
PROVIDERS: PCP Family Medicine; Referring Provider Obstetrics & Gynecology; Visit Provider Obstetrics & Gynecology
DX: Z12.31 Encounter for screening mammogram for malignant neoplasm of breast (principal)
CPT/HCPCS: 77063; 77067